=== PATIENT | female | born 1970 | race Caucasian/White ===

== ENCOUNTER → 2020-09-06 11:03 | Outpatient (BNVA) | payer OTHER, SELFPAY | PROVIDERS: PCP Internal Medicine Geriatric Medicine; Referring Provider Internal Medicine Geriatric Medicine; Visit Provider Orthopaedic Surgery | DX: M23.91 Unspecified internal derangement of right knee (principal) | CPT/HCPCS: 20610; J1100 ==

== ENCOUNTER 2022-04-11 18:53 | Emergency (ER) | payer OTHER, SELFPAY ==
--- NOTE | 2022-04-11 19:42 | ED.SKABFB ---
HPI - Skin/Abscess/Foreign Bdy General Chief complaint: Allergic Reaction Stated complaint: ? Monkey Pox Time Seen by Provider: 04/11/22 19:13 Source: patient Mode of arrival: ambulatory Limitations: no limitations History of Present Illness HPI narrative: 51-year-old female with a history of seasonal allergies presents to the emergency department with reports of itching rash noted today. Patient denies any fevers, chills, flu-like symptoms. Patient reports no shortness of breath, difficulty swallowing, cough, abdominal pain, vomiting or diarrhea. Patient did not take any medications prior to arrival. No recent travel or sick contact. No new medications, lotions, detergents, food. Does work at [employer] Related Data Previous Rx's Medication Instructions Recorded ibuprofen 600 mg tablet 600 mg PO Q8H PRN for pain #90 tabs 11/01/20 diphenhydramine HCl 25 mg capsule 25 mg PO TID PRN itching #20 caps 04/11/22 (Benadryl) prednisone 20 mg tablet 40 mg PO DAILY #10 tabs 04/11/22 Allergies Allergy/AdvReac Type Severity Reaction Status Date / Time No Known Allergies Allergy Verified 09/06/20 12:05 [No Known Allergies*] Review of Systems Review of Systems: Yes all other systems are reviewed and are negative Constitutional: Constitutional: Reports no additional constitutional complaints, Denies body ache(s), Denies chills, Denies fever(s), Denies headache(s) and Denies weakness Eyes: Eyes: Reports no additional eye complaints and Denies change in vision ENT: Reports system reviewed and no additional complaints, except as documented, Denies dizziness, Denies headache(s), Denies nasal congestion, Denies nasal discharge and Denies neck pain Cardiovascular: Cardiovascular: Reports no additional cardiovascular complaints, Denies chest pain, Denies leg edema and Denies dyspnea Respiratory: Respiratory: Reports no additional respiratory complaints, Denies cough and Denies dyspnea Gastrointestinal: Gastrointestinal: Reports no additional gastrointestinal complaints, Denies abdominal pain, Denies diarrhea, Denies nausea and Denies vomiting Genitourinary: Genitourinary: Reports no additional female genitourinary complaints and Denies urinary incontinence Musculoskeletal: Musculoskeletal: Reports no additional musculoskeletal complaints, Denies back pain, Denies arthralgias, Denies joint swelling, Denies neck pain, Denies numbness and Denies tingling Integumentary/Breasts: Skin/Breast: Reports system reviewed and no additional complaints, except as docu and Reports rash Neurologic: Reports system reviewed and no additional complaints, except as documented, Denies Abnormal speech present, Denies dizziness, Denies headache(s), Denies numbness, Denies tingling and Denies weakness PMFSH Past Medical History Attestation statement: The following information was validated with the patient. Source: old records reviewed and nursing notes reviewed Medical History Asthma Diverticulitis Internal derangement of right knee Migraine Osteoarthritis of knees, bilateral Patellofemoral pain syndrome of left knee Surgical History History of arthroscopy of left knee Family History Family History Mother No problems noted. Father No problems noted. 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 Physical Exam Vital Signs: Vital Signs: Last Vital Signs Temp 97.7 F 04/11/22 19:47 Pulse 83 04/11/22 19:47 Resp 18 04/11/22 19:47 BP 114/82 04/11/22 19:47 Pulse Ox 97 04/11/22 19:47 BMI result Body Mass Index 35.1 Const: General: cooperative, healthy appearing, comfortable and no acute distress Orientation/consciousness: patient oriented x3 Limitations: no limitations HEENT: Head: Yes normal to inspection Ears: hearing grossly normal bilaterally and TM's normal bilaterally General nose exam: Normal external nose present Face and sinus: Yes normal facial exam Mouth: Normal oral and palatal mucosa present Throat: Yes posterior oropharynx normal, Yes tonsils normal and Yes uvula midline Eyes: General: appearance normal, both eyes and all related structures Pupils: Equal, round and reactive pupils present Neck: Neck: Yes normal visual inspection, Yes full ROM, Yes no lymphadenopathy and Yes no meningeal signs Chest: Chest palpation & inspection: normal inspection of the chest Resp: Effort & Inspection: normal respiratory effort Auscultation: clear to auscultation bilaterally Cardio: Rate: regular rate Rhythm: regular rhythm Peripheral pulses: Peripheral pulses 2+ throughout GI: Inspection: Yes normal to inspection Palpation (GI): Soft to palpation and nontender Auscultation: normal bowel sounds Back/Spine/Pelvis: Thoracic/Lumbar Spine: thoracic and lumbar spine normal to inspection Skin: Other: General skin exam: no rashes or lesions noted Neuro: General: patient oriented x3, no meningeal signs, no focal motor deficits and normal sensation to monofilament Cranial nerves: Yes Equal, round and reactive pupils present Cognition (Neuro): normal cognition Speech: No Abnormal speech present Gait exam (Neuro): Normal gait present Motor exam (neuro): 5/5 motor strength present throughout Extrem: General: Yes normal to inspection, Yes no pedal edema and Yes no calf tenderness MDM - Skin/Abscess/Foreign Bdy MDM Narrative Medical decision making narrative: 51-year-old female presents with itching rash noted to the left arm, neck and trunk today. No fever or flu-like symptoms. No airway involvement. Will give PO pred, benadryl -considered dermatitis, allergic reaction, insect bites -Low concern for monkey pox with atypical rash for pox (see photos), no prodromal flu like symptoms, no fever or lymphadenopathy, no recent travel or reports of exposure. -Case d/w with Dr Sepulveda Medical Records Attestation: I reviewed the patient's medical records. Lab Data Attestation: I reviewed the patient's lab results. Discharge Plan Discharge Clinical Impression: Allergic reaction Patient Disposition: Home, Self-Care Instructions: General Allergic Reaction (ED) Additional Instructions: Continue your home medications Return for swollen lymph nodes, fever, rash in the groin or mouth Prescriptions: New prednisone 20 mg tablet 40 mg PO DAILY Qty: 10 0RF diphenhydramine HCl [Benadryl] 25 mg capsule 25 mg PO TID PRN (Reason: itching) Qty: 20 0RF No Action ibuprofen 600 mg tablet 600 mg PO Q8H PRN (Reason: for pain) Qty: 90 0RF Referrals: Stanley Diaz MD [Primary Care Provider] - Interventions: ED Discharge Assessment Last Done: 04/11/22 21:11 Discharge Date/Time: 04/11/22 21:11
[2022-04-11 19:47] VITALS: BP 114/82; PULSE 83; RESP 18; TEMP 36.5; O2SAT 97; BMI 35.1
--- NOTE | 2022-04-11 20:00 | PC.NURSE ---
pt a&ox3, vss, pt reporting new abd rash - appeared this morning. medicated per provider order. no new orders at this time.
[2022-04-11] MEDS: predniSONE 20 MG TABLET 60 MG PO (20:01)
[2022-04-11] MEDS: diphenhydrAMINE HCL 25 MG TABLET 50 MG PO (20:02)
== END 2022-04-11 21:11 | disposition home or self-care (01) ==
PROVIDERS: Emergency Provider Emergency Medicine; PCP Internal Medicine Geriatric Medicine
DX: L50.0 Allergic urticaria (principal)
CPT/HCPCS: 99283; 99284; Q0163

== ENCOUNTER 2022-06-08 05:21 | Emergency (ER) | payer OTHER, SELFPAY ==
[2022-06-08 05:40] VITALS: BP 115/88; PULSE 96; RESP 20; TEMP 38.2; O2SAT 98; BMI 34.2
[2022-06-08 06:00] LABS: COVID-19 Test Positive (Negative); IDNOW Serial# 9DB6401D
[2022-06-08 06:04] LABS: IDNOW Serial# 16C4AD1C; Influenza A Negative (Negative); Influenza B2 Negative (Negative)
--- NOTE | 2022-06-08 08:09 | ED_ITS ---
HPI - URI/Sore Throat General Chief Complaint: Upper Respiratory Symptoms Stated Complaint: Flu like symptoms Time Seen by Provider: 06/08/22 07:56 Source: patient Mode of arrival: ambulatory Limitations: no limitations History of Present Illness HPI Narrative: 51-year-old female who presents emergency department for evaluation of cold-like symptoms x2 days. Patient states she got sick yesterday. She developed a sore throat, headache and nonproductive cough. She states she also had a fever as high as 100.7 degrees F. She complained of fatigue, myalgias and arthralgias. She denied diarrhea. The patient received 3 Moderna COVID-19 vaccinations. She denied chest pain, shortness of breath or dyspnea on exertion. MD elicited complaint: fever and cough Onset (ago): day(s) (2) Consistency: constant Severity: moderate Able to tolerate fluids by mouth: Yes Exacerbating factors: nothing Relieving factors: nothing Associated symptoms: fever, chills, myalgias, headache, rhinorrhea, sore throat and cough Treatments prior to arrival: none Related Data Previous Rx's Medication Instructions Recorded ibuprofen 600 mg tablet 600 mg PO Q8H PRN for pain #90 tabs 11/01/20 diphenhydramine HCl 25 mg capsule 25 mg PO TID PRN itching #20 caps 04/11/22 (Benadryl) prednisone 20 mg tablet 40 mg PO DAILY #10 tabs 04/11/22 nirmatrelvir 300 mg (150 mg See Rx Instructions PO .COMPLEX 06/08/22 x2)-ritonavir 100 mg tablet,dose #30 ea pack(EUA) (Paxlovid) Allergies Allergy/AdvReac Type Severity Reaction Status Date / Time No Known Allergies Allergy Verified 09/06/20 12:05 [No Known Allergies*] Review of Systems Review of Systems: Yes all other systems are reviewed and are negative [facility] Past Medical History [facility] Narrative: Social history: She denies tobacco use. She occasionally drinks alcohol. She uses marijuana edibles. Medical History Asthma Diverticulitis Internal derangement of right knee Migraine Osteoarthritis of knees, bilateral Patellofemoral pain syndrome of left knee Surgical History History of arthroscopy of left knee Family History Family History Mother No problems noted. Father No problems noted. 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 Physical Exam Vital Signs: Vital Signs: Last Vital Signs Temp 100.7 F H 06/08/22 05:40 Pulse 96 06/08/22 05:40 Resp 20 06/08/22 05:40 BP 115/88 06/08/22 05:40 Pulse Ox 98 06/08/22 05:40 O2 Del Method 06/08/22 05:40 BMI result Body Mass Index 34.2 Const: General: cooperative and no acute distress Orientation/consciousness: oriented to person and oriented to place Limitations: no limitations HEENT: Head: Yes normal to inspection, Yes normocephalic and Yes atraumatic Ears: external ears normal General nose exam: Normal external nose present Face and sinus: Yes normal facial exam Mouth: Normal oral and palatal mucosa present Throat: Yes posterior oropharynx normal Eyes: General: appearance normal, both eyes and all related structures Pupils: Equal, round and reactive pupils present Neck: Neck: Yes normal visual inspection, Yes no lymphadenopathy, Yes trachea midline and Yes supple Chest: Chest palpation & inspection: normal inspection of the chest and normal palpation of entire chest wall Resp: Effort & Inspection: normal respiratory effort and able to speak in complete sentences Auscultation: clear to auscultation bilaterally Cardio: Rate: regular rate Rhythm: regular rhythm Heart sounds: S1 normal heart sound present, S2 normal heart sound present and no murmurs GI: Inspection: Yes normal to inspection Palpation (GI): Soft to palpation, nontender and no guarding Auscultation: normal bowel sounds : General: Yes no CVA tenderness Back/Spine/Pelvis: Back: no CVA tenderness Skin: General skin exam: no rashes or lesions noted Neuro: General: oriented to person and oriented to place Cranial nerves: Yes CN's II-XII intact bilaterally and Yes Equal, round and reactive pupils present Cognition (Neuro): normal cognition Motor exam (neuro): 5/5 motor strength present throughout Extrem: General: Yes normal to inspection Psych: Appearance: grossly normal Speech and movement: Normal speech and movement present Affect: normal affect Attitude: cooperative Thought process: Normal thought process present Thought content: Normal thought content present Course Course Course Narrative: 51-year-old female who presents to emergency department for evaluation of 2 days of upper respiratory illness with symptoms including fever, chills, cough, myal gias, arthralgias and fatigue the patient did receive 2 Moderna shots and a Moderna booster shot. The patient's vital signs revealed a fever of 100.7 degrees F otherwise her exam was unremarkable. The patient's COVID-19 test is positive. I did discuss treatment with the patient and I do think that the patient would benefit from Paxlovid and she was prescribed a 5 day course. She was advised to take Tylenol and ibuprofen as well. She was given a work note for 1 week. She was given printed and verbal instructions discharged home. MDM - URI/Sore Throat Lab Data Labs: Lab Results 06/08/22 06/08/22 Range/Units 05:44 05:44 COVID-19 (JANE) Positive A (Negative) COVID-19 Clin Com See Note Influenza Type A (ELIS) Negative (Negative) Influenza Type B (ELIS) Negative (Negative) Influenza A & B Note See Note Discharge Plan Discharge Clinical Impression: COVID-19 Patient Disposition: Home, Self-Care Instructions: COVID-19 (Coronavirus Disease 2019) (ED) Additional Instructions: Your COVID-19 test was positive. You will need to isolate for 5-7 days or until you have no fever for 24 hours. The cough from COVID can sometimes last 2 weeks. I am starting you on Paxlovid which is a medications specific for the COVID virus. Take this medication twice a day for 5 days. Take ibuprofen 200 mg pills, 3 pills every 6 hours as needed for pain or fever. Take Tylenol (acetaminophen) 500 mg pills, 2 pills every 4 to 6 hours as needed for pain or fever. Follow-up with your doctor in 2 days. Please return to the emergency department if your symptoms get worse or if you develop any symptoms that are concerning to you. Please see the work note. You can get your next booster shot against COVID-19 3 months after this infection. You should talk to the pharmacist about whether you should get the 4th booster shot or skip that shot and get the 5th booster shot which has the original COVID-19 vaccine +a new vaccine against the COVID Omicron variants. Prescriptions: New Paxlovid (EUA) 300 mg (150 mg x 2)-100 mg tablets,dose pack See Rx Instructions .ROUTE .COMPLEX Qty: 30 0RF Rx Instructions: take TWO 150 mg tablets of nirmatrelvir with ONE 100 mg tablet of ritonavir twice daily for 5 days No Action ibuprofen 600 mg tablet 600 mg PO Q8H PRN (Reason: for pain) Qty: 90 0RF prednisone 20 mg tablet 40 mg PO DAILY Qty: 10 0RF diphenhydramine HCl [Benadryl] 25 mg capsule 25 mg PO TID PRN (Reason: itching) Qty: 20 0RF Stand Alone Forms: Work/School Release
== END 2022-06-08 08:25 | disposition home or self-care (01) ==
PROVIDERS: Emergency Provider Emergency Medicine Emergency Medical Services; PCP Internal Medicine Geriatric Medicine
DX: U07.1 COVID-19 (principal); M79.10 Myalgia, unspecified site; R51.9 Headache, unspecified; R50.9 Fever, unspecified; R05.9 Cough, unspecified; Z79.899 Other long term (current) drug therapy
CPT/HCPCS: 87502; 87635; 99282; 99283

== ENCOUNTER 2022-07-12 18:00 | Emergency (ER) | payer OTHER, SELFPAY ==
[2022-07-12 19:53] VITALS: BP 129/81; PULSE 88; RESP 16; TEMP 36.2; O2SAT 99; BMI 31.1
--- NOTE | 2022-07-12 21:25 | ED.SKABFB ---
HPI - Skin/Abscess/Foreign Bdy General Chief complaint: Skin/Abscess/Foreign Body Stated complaint: ? 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 No known injury or trauma. No fevers, chills, headache, neck pain, weakness, numbness, tingling, speech change in behavior change. Related Data Previous Rx's Medication Instructions Recorded ibuprofen 600 mg tablet 600 mg PO Q8H PRN for pain #90 tabs 11/01/20 diphenhydramine HCl 25 mg capsule 25 mg PO TID PRN itching #20 caps 04/11/22 (Benadryl) prednisone 20 mg tablet 40 mg PO DAILY #10 tabs 04/11/22 nirmatrelvir 300 mg (150 mg See Rx Instructions PO .COMPLEX 06/08/22 x2)-ritonavir 100 mg tablet,dose #30 ea pack(EUA) (Paxlovid) Allergies Allergy/AdvReac Type Severity Reaction Status Date / Time No Known Allergies Allergy Verified 09/06/20 12:05 [No Known Allergies*] Review of Systems Review of Systems: Yes all other systems are reviewed and are negative Constitutional: Constitutional: Reports no additional constitutional complaints, Denies body ache(s), Denies chills, Denies fever(s), Denies headache(s) and Denies weakness Eyes: Eyes: Reports no additional eye complaints and Denies change in vision ENT: Reports system reviewed and no additional complaints, except as documented, Denies dizziness, Denies headache(s), Denies nasal congestion, Denies nasal discharge and Denies neck pain Cardiovascular: Cardiovascular: Reports no additional cardiovascular complaints, Denies chest pain, Denies leg edema and Denies dyspnea Respiratory: Respiratory: Reports no additional respiratory complaints, Denies cough and Denies dyspnea Gastrointestinal: Gastrointestinal: Reports no additional gastrointestinal complaints, Denies abdominal pain, Denies diarrhea, Denies nausea and Denies vomiting Genitourinary: Genitourinary: Reports no additional female genitourinary complaints and Denies urinary incontinence Musculoskeletal: Musculoskeletal: Reports no additional musculoskeletal complaints, Denies back pain, Denies arthralgias, Denies joint swelling, Denies neck pain, Denies numbness and Denies tingling Integumentary/Breasts: Skin/Breast: Reports system reviewed and no additional complaints, except as docu and Denies rash Neurologic: Reports system reviewed and no additional complaints, except as documented, Denies Abnormal speech present, Denies dizziness, Denies headache(s), Denies numbness, Denies tingling and Denies weakness PMFSH Past Medical History Attestation statement: The following information was validated with the patient. Source: old records reviewed and nursing notes reviewed Medical History Asthma Diverticulitis Internal derangement of right knee Migraine Osteoarthritis of knees, bilateral Patellofemoral pain syndrome of left knee Surgical History History of arthroscopy of left knee Family History Family History Mother No problems noted. Father No problems noted. 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 6cm area of swelling which is minimal, soft, not fluctuant/no induration or erythema. Minimally tender Ears: hearing grossly normal bilaterally General nose exam: Normal external nose present Face and sinus: Yes normal facial exam Mouth: Normal oral and palatal mucosa present Throat: Yes posterior oropharynx normal Eyes: General: appearance normal, both eyes and all related structures Pupils: Equal, round and reactive pupils present Neck: Neck: Yes normal visual inspection Chest: Chest palpation & inspection: normal inspection of the chest Resp: Effort & Inspection: normal respiratory effort Auscultation: clear to auscultation bilaterally Cardio: Rate: regular rate Rhythm: regular rhythm Peripheral pulses: Peripheral pulses 2+ throughout GI: Inspection: Yes normal to inspection Palpation (GI): Soft to palpation and nontender Auscultation: normal bowel sounds Back/Spine/Pelvis: Thoracic/Lumbar Spine: thoracic and lumbar spine normal to inspection Skin: General skin exam: no rashes or lesions noted Neuro: General: patient oriented x3, no focal motor deficits and normal sensation to monofilament Cranial nerves: Yes Equal, round and reactive pupils present Cognition (Neuro): normal cognition Speech: No Abnormal speech present Gait exam (Neuro): Normal gait present Motor exam (neuro): 5/5 motor strength present throughout Extrem: General: Yes normal to inspection MDM - Skin/Abscess/Foreign Bdy MDM Narrative Medical decision making narrative: 51 yo female here with swelling/tenderness to posterior left head x several days. Not c/w with abscess ?lipoma. Normal exam otherwise. VSS] Can follow-up with PCP. Discussed with Dr Hammonds who saw patient as well. Medical Records Attestation: I reviewed the patient's medical records. Lab Data Attestation: I reviewed the patient's lab results. Discharge Plan Discharge Clinical Impression: [place] Patient Disposition: Home, Self-Care Instructions: [place] (ED) Additional Instructions: Motrin o tylenol para el dolor seg?n sea necesario. Compresas calientes si es necesario. Seguimiento con el m?dico de atenci?n primaria seg?n sea necesario. Prescriptions: No Action ibuprofen 600 mg tablet 600 mg PO Q8H PRN (Reason: for pain) Qty: 90 0RF prednisone 20 mg tablet 40 mg PO DAILY Qty: 10 0RF diphenhydramine HCl [Benadryl] 25 mg capsule 25 mg PO TID PRN (Reason: itching) Qty: 20 0RF Paxlovid (EUA) 300 mg (150 mg x 2)-100 mg tablets,dose pack See Rx Instructions .ROUTE .COMPLEX Qty: 30 0RF Rx Instructions: take TWO 150 mg tablets of nirmatrelvir with ONE 100 mg tablet of ritonavir twice daily for 5 days Referrals: Name,MD Stanley [Primary Care Provider] - 5 days Interventions: ED Discharge Assessment Last Done: 07/12/22 21:32 Discharge Date/Time: 07/12/22 21:33 Print Language: Green[place]ic
== END 2022-07-12 21:33 | disposition home or self-care (01) ==
PROVIDERS: Emergency Provider Emergency Medicine; PCP Internal Medicine Geriatric Medicine
DX: D17.22 Benign lipomatous neoplasm of skin and subcutaneous tissue of left arm (principal)
CPT/HCPCS: 99282

== ENCOUNTER 2023-10-22 14:00 | Outpatient (REF) | payer OTHER, SELFPAY | END 2023-10-22 14:01 | disposition home or self-care (01) | LOC: HO.HHCLNP 14:00 | PROVIDERS: Visit Provider Internal Medicine Geriatric Medicine | DX: R12 Heartburn (principal); K21.9 Gastro-esophageal reflux disease without esophagitis | CPT/HCPCS: 87338 ==

== ENCOUNTER 2024-03-10 09:02 | Outpatient (REF) | payer OTHER, SELFPAY ==
[2024-03-10 11:45] LABS: MANUAL DIFF FLAG NO
[2024-03-10 11:48] LABS: Basophils Percent Auto 0.6 % (0-2); Eosinophils Absolute Auto 0.1 X10*3/uL (0.0-0.4); Eosinophils Percent Auto 2.9 % (0-4); Hematocrit 42.6 % (37.0-47.0); Imm Gran Abs Auto 0.01 X10*3/uL (0.00-0.03); Imm Gran Pct Auto 0.2 % (0.0-0.4); Lymphocytes Absolute Auto 1.7 X10*3/uL (1.2-4.9); Lymphocytes Percent Auto 34.7 % (20-40); Mean Corpuscular HGB Conc 32.9 g/dl (31.0-35.0); Mean Corpuscular Hemoglobin 29.7 pg (27.0-33.0); Mean Corpuscular Volume 90.3 fL (80.0-98.0); Mean Platelet Volume 10.8 fL (9.4-12.3); Monocytes Absolute Auto 0.4 X10*3/uL (0.1-1.2); Monocytes Percent Auto 7.3 % (2-11); Neutrophils Absolute Auto 2.6 x10*3/uL (2.0-8.3); Neutrophils Percent Auto 54.3 % (45-73); Platelet Count 239 X10*3/uL (160-400); Red Blood Count 4.72 X10*6/uL (4.20-5.50); Red Cell Distribution Width 12.6 % (11.0-16.0); White Blood Count 4.8 X10*3/uL (4.8-10.8)
[2024-03-10 11:56] LABS: Estimated Average Glucose 114 mg/dL; Hemoglobin A1c % 5.6 % (<6.0)
[2024-03-10 12:24] LABS: Alanine Aminotransferase 17 U/L (0-31); Albumin Level 4.1 g/dL (3.5-5.0); Alkaline Phosphatase 57 U/L (39-117); Anion Gap 14 (12-20); Aspartate Amino Transferase 20 U/L (5-31); Bilirubin Total 0.5 mg/dL (0.0-1.0); Blood Urea Nitrogen 11 mg/dL (9-16); Calcium 9.6 mg/dL (8.4-10.2); Carbon Dioxide 24 mmol/L (22-29); Chloride 108 mmol/L (96-108); Cholesterol 183 mg/dL (<200); Estimated Glomerular Filt Rate > 60; Glucose Random 101 mg/dL (60-115); HDL Cholesterol 37 mg/dL (>40); LDL Cholesterol Calculated 128 mg/dL (<100); Potassium 4.3 mmol/L (3.3-5.1); Sodium 142 mmol/L (135-145); Total Protein 7.1 g/dL (6.5-8.0); Triglycerides 90 mg/dL (<150)
== END 2024-03-10 09:03 | disposition home or self-care (01) ==
LOC: HO.HHCL 09:02
PROVIDERS: Visit Provider Internal Medicine Geriatric Medicine
DX: Z00.00 Encounter for general adult medical examination without abnormal findings (principal); Z13.1 Encounter for screening for diabetes mellitus; Z13.220 Encounter for screening for lipoid disorders
CPT/HCPCS: 36415; 80053; 80061; 83036; 85025

== ENCOUNTER 2025-05-04 09:55 | Emergency (ER) | payer OTHER, SELFPAY ==
[2025-05-04 10:26] VITALS: BP 123/68; PULSE 72; RESP 16; TEMP 36.7; O2SAT 97; BMI 34.9
--- NOTE | 2025-05-04 10:28 | ED_ITS ---
HPI - Nausea/Vomiting/Diarrhea General Chief complaint: Nausea/Vomiting/Diarrhea Stated complaint: Diarrhea, possible food poisoning Time Seen by Provider: 05/04/25 11:05 Source: patient and safety director Mode of arrival: ambulatory Limitations: language barrier (Monegasque-speaking) History of Present Illness ED Provider: Abdon White PA-C HPI Narrative: 54-year-old female with medical history of patellofemoral pain syndrome, diverticulitis, migraine, asthma presents to the ED due to 2 days of nausea without vomiting and diarrhea. Patient states she just returned from a 7 day cruise from the [facility] last night. Patient states Sunday night she went to dinner at a restaurant on the cruise where she and her ate salmon ceviche and began experiencing symptoms approximately 5 hours after ingesting. Her is experiencing the same symptoms as well. She was seen by a provider on the cruise ship who gave her ?an injection for diarrhea and nausea? but is unable to disclose what exactly she was given. Patient reports 3 episodes of clear watery diarrhea yesterday, and 5 episodes of clear watery diarrhea today with abdominal cramping, and chills. Patient denies any blood or mucus in the diarrhea. Patient denies any excursions or exposure to fresh water lakes or [place] while on vacation. Patient denies chest pain, shortness of breath, vomiting, black/tarry stool, urinary symptoms. Related Data Previous Rx's ?Medication ?Instructions ?Recorded ibuprofen 600 mg tablet 600 mg PO Q8H PRN for pain # 90 tabs 11/01/20 diphenhydramine HCl 25 mg capsule 25 mg PO TID PRN itc jose #20 caps 04/11/22 (Benadryl) prednisone 20 mg tablet 40 mg (2 x 20 mg) PO DAILY # 10 tabs 04/11/22 nirmatrelvir 300 mg (150 mg See Rx Instructions PO .CO MPLEX 06/08/22 x2)-ritonavir 100 mg tablet,dose #30 ea pack (Paxlovid) dicyclomine 10 mg capsule 10 mg PO BID 3 days #6 caps 05/04/25 ondansetron HCl 4 mg tablet 4 mg PO Q8H 3 days #9 tabs 05/04/25 Allergies Allergy/AdvReac Type Severity Reaction Status Date / Time No Known Allergies (No Known Allergy Verified 05/04/25 10:30 Allergies*) Review of Systems 2 Review of Systems: CONST: Negative for fever, body aches and chills. HENT: Negative for neck pain/stiffness, headache, congestion, sore throat, swelling. EYES: Negative for discharge/pain or vision changes. RESP: Negative for cough/hemoptysis and shortness of breath. CV: Negative chest pain, difficulty breathing, palpitations. ABD: Negative pain, nausea, vomiting. POS diarrhea, abd bloating, cramping : Negative increase frequency, dysuria, blood in urine or stool. MUSC: Negative for muscle aches, edema. SKIN: Negative rash, lesions/sores. NEURO: Negative headache, dizziness, weakness. [facility] Past Medical History Attestation statement: The following information was validated with the patient. Source: old records reviewed and nursing notes reviewed Medical History Internal derangement of right knee Patellofemoral pain syndrome of left knee Diverticulitis Migraine Osteoarthritis of knees, bilateral Asthma Surgical History History of arthroscopy of left knee Family History Family History Mother No problems noted. Father No problems noted. 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 HEENT: ?NC, AT. MMM. EOMI, clear conjunctiva, oropharynx clear. NECK: ?Supple without lymphadenopathy.? No stiffness or restricted ROM. HEART:? Normal rate and regular rhythm, normal S1/S2, no m/r/g LUNGS:? CTAB, moving air well. No crackles or wheezes are heard. ABDOMEN: ?Soft, nondistended, no rigidity, diffusely tender, Pickens's sign negative, no rebound tenderness, normal bowel sounds in all 4 quadrants. BACK: No CVAT, no obvious deformity. EXTREMITIES: ?Without cyanosis, clubbing or edema. NEUROLOGICAL: ?Grossly nonfocal. Alert and oriented, moving all 4 extremities. Observed to ambulate with normal gait. Skin: ?Warm and dry without any rash. Course Course Course Narrative: 54 yo female with no sig PMH just went on a cruise to the [facility] - came back yesterday but on Sunday they ate cevich. She was given immodium by cruise ship director. Her also has the same illness and he is waiting to be seen as ER patient. She reports abdominal cramps, non bloody stools, chills, she still has N/V. No recent abx use. At this time labs, stool studies. this is a RAPID medical screening exam the rest of the history and physical exam is to be done by the main provider. KATHRYN 05/04/25 1030am Medications Administered Generic Name Dose Route Start Last Admin Trade Name Freq PRN Reason Stop Dose Admin Lactated Ringer's 1,000 mls @ 999 mls/hr 05/04/25 12:15 05/04/25 12:08 Lr IV 05/04/25 13:15 999 mls/hr .[id number] CORRY Administration Discontinued Medications Generic Name Dose Route Start Last Admin Trade Name Freq PRN Reason Stop Dose Admin Azithromycin 1,000 mg 05/04/25 12:05/04/25 12:40 Azithromycin 500 Mg Tablet PO 05/04/25 12:26 1,000 mg ONCE ONE Administration Dicyclomine HCl 10 mg 05/04/25 12:25 05/04/25 12:40 Dicyclomine Hcl 10 Mg Capsule PO 05/04/25 12:26 10 mg ONCE ONE Administration Medical Decision Making Medical Decision Making MDM Narrative: 54-year-old female with medical history of patellofemoral pain syndrome, diverticulitis, migraine, asthma presents to the ED due to 2 days of nausea without vomiting and diarrhea. Patient states she just returned from a 7 day cruise from the [facility] last night. Patient states Sunday night she went to dinner at a restaurant on the cruise where she and her ate salmon ceviche and began experiencing symptoms approximately 5 hours after ingesting. Her is experiencing the same symptoms as well. She was seen by a provider on the cruise ship who gave her ?an injection for diarrhea and nausea? but is unable to disclose what exactly she was given. Patient reports 3 episodes of clear watery diarrhea yesterday, and 5 episodes of clear watery diarrhea today with abdominal cramping, and chills. Patient denies any blood or mucus in the diarrhea. Patient denies any excursions or exposure to fresh water lakes or [place] while on vacation. VSS, nontoxic appearing, in no acute distress, BP 123/68, pulse rate 72 beats per minute, afebrile with an oral temp of 98.1?, O2 saturation 97% on room air. On physical exam abdomen is soft, nondistended, without rigidity, Pickens's sign negative, no rebound tenderness, normal bowel sounds in all 4 quadrants, abdomen diffusely tender, no suprapubic tenderness- less likely acute abdomen Labs negative for leukocytosis, unremarkable. UA with 2+ leukocyte esterase, 11-20 urine WBCs, 2+ urine bacteria, 6-10 squamous epithelial cells. Patient without suprapubic tenderness, no dysuria, no urinary frequency. I do not believe patient needs to be treated with antibiotics for UTI at this time. Will wait for culture and treat if indicated. At this time I believe patient symptoms are due to traveler's diarrhea, her and her ate the same food, both with same symptoms. Patient without vomiting, no blood in stool. We will treat with IV fluids, dose of 10 mg Bentyl for gas and bloating, and 1 g p.o. azithromycin to cover for traveler's diarrhea. Awaiting stool culture results, we will call patient with results and change treatment as indicated. I will discharged with Bentyl, and Zofran for nausea. Differential Diagnosis Differential Diagnoses: The differential diagnosis associated with the presentation includes Traveler's diarrhea Acute abdomen UTI Electrolyte abnormality Dehydration Admission/Observation Consideration of admission/observation: Escalation of care including admission/observation considered Considered admission, patient vital signs stable, afebrile, we will send home for self-care, and call with results of stool culture. Lab Data MDM Lab Attestation statement: I reviewed the patient's lab results. 05/04/25 10:37 05/04/25 10:37 Labs: Lab Results 05/04/25 05/04/25 Range/Units 10:37 11:54 WBC 4.9 (4.8-10.8) X10*3/uL RBC 4.56 (4.20-5.50) X10*6/uL Hgb 13.9 (12.0-16.0) g/dl Hct 41.0 (37.0-47.0) % MCV 89.9 (80.0-98.0) fL MCH 30.5 (27.0-33.0) pg MCHC 33.9 (31.0-35.0) g/dl RDW 13.2 (11.0-16.0) % Plt Count 185 (160-400) X10*3/uL MPV 10.2 (9.4-12.3) fL Immature Gran % (Auto) 0.2 (0.0-0.4) % Neut % (Auto) 65.8 (45-73) % Lymph % (Auto) 23.6 (20-40) % [place] % (Auto) 9.4 (2-11) % Eos % (Auto) 0.6 (0-4) % Baso % (Auto) 0.4 (0-2) % Lymph # (Auto) 1.2 (1.2-4.9) X10*3/uL [place] # (Auto) 0.5 (0.1-1.2) X10*3/uL Eos # (Auto) 0.0 (0.0-0.4) X10*3/uL Baso # (Auto) 0.0 (0.0-0.2) X10*3/uL Abs Immat Gran (auto) 0.01 (0.00-0.03) X10*3/uL Absolute Neuts (auto) 3.2 (2.0-8.3) x10*3/uL Absolute Nucleated RBC 0.000 (0.0-0.012) X10*3/uL Nucleated RBC % (auto) 0.0 (0.0-0.2) /100WBC Sodium 140 (135-145) mmol/L Potassium 3.5 (3.3-5.1) mmol/L Chloride 108 (96-108) mmol/L Carbon Dioxide 24 (22-29) mmol/L Anion Gap 12 (12-20) BUN 13 (9-16) mg/dL Creatinine 0.67 (0.5-1.4) mg/dL Estim Creat Clear Calc 98.0 Estimated GFR > 60 Random Glucose 107 (60-115) mg/dL Calcium 8.4 D (8.4-10.2) mg/dL Magnesium 1.9 (1.6-2.6) mg/dL Total Bilirubin 0.5 (0.0-1.0) mg/dL Direct Bilirubin 0.2 (0.0-0.5) mg/dL AST 38 H (5-31) U/L ALT 76 H (0-31) U/L Alkaline Phosphatase 69 (39-117) U/L Total Protein 6.8 (6.5-8.0) g/dL Albumin 4.2 (3.5-5.0) g/dL Lipase 24 (8-78) U/L Urine Color Yellow Urine Appearance Clear Urine pH 6.0 (5.0-9.0) Ur Specific [place] 1.020 (1.005-1.025) Urine Protein Trace (Neg-Trace) mg/dL Urine Glucose (UA) Negative (Negative) mg/dL Urine Ketones Negative (Negative) mg/dL Urine Blood Negative (Negative) Urine Nitrite Negative (Negative) Ur Leukocyte Esterase Moderate (2+) H (Negative) Urine RBC 0-2 (0-2) /HPF Urine WBC 11-20 H (0-5) /HPF Ur Squamous Epith Cells 6-10 (0-2) /HPF Urine Bacteria 2+ (None Seen) Hyaline Casts 0-2 (0-2) /LPF External Record Review External record reviewed: Inpatient record, Office record and Outpatient record Chronic Conditions Patient?s care impacted by: Other (Asthma) Discharge Plan Discharge Clinical Impression: Traveler's diarrhea Patient Disposition: Home, Self-Care Instructions: Traveler's Diarrhea (ED), Acute Diarrhea (ED) Additional Instructions: You were evaluated in the ED today due to 2 days of diarrhea. Your lab work did not show indication of infection at this time, your urine had some bacteria in it, however you were not experiencing urinary symptoms at this time. I do not believe that you need treatment. We will call you with your culture results and start you on treatment if indicated. We are awaiting your stool sample results, we will call you with those results and treat you as indicated. While in the department you were given IV fluids, 1 g of azithromycin to cover for traveler's diarrhea, and 10 mg of Bentyl to help with abdominal bloating and gas. Continue to drink plenty of fluids, Pedialyte, sports drinks to replete electrolytes as needed. I recommend you eat a bland diet and advance as tolerated. Please follow up with your primary care doctor to ensure improvement. Please return to the emergency department if you experience fevers over 100.4?, chest pain, shortness of breath, worsening abdominal pain, worsening diarrhea, blood in the diarrhea, or any other new/concerning/worsening symptoms. Prescriptions: New dicyclomine 10 mg capsule 10 mg PO BID 3 Days Qty: 6 0RF ondansetron HCl 4 mg tablet 4 mg PO Q8H 3 Days Qty: 9 0RF No Action ibuprofen 600 mg tablet 600 mg PO Q8H PRN (Reason: for pain) Qty: 90 0RF prednisone 20 mg tablet 40 mg PO DAILY Qty: 10 0RF diphenhydramine HCl [Benadryl] 25 mg capsule 25 mg PO TID PRN (Reason: itching) Qty: 20 0RF Paxlovid 300 mg (150 mg x 2)-100 mg tablets,dose pack See Rx Instructions .ROUTE .COMPLEX Qty: 30 0RF Rx Instructions: take TWO 150 mg tablets of nirmatrelvir with ONE 100 mg tablet of ritonavir twice daily for 5 days Print Language: Monegasque
[2025-05-04 10:41] LABS: MANUAL DIFF FLAG NO
[2025-05-04 10:42] LABS: Hematocrit 41.0 % (37.0-47.0); Hemoglobin 13.9 g/dl (12.0-16.0); Imm Gran Abs Auto 0.01 X10*3/uL (0.00-0.03); Imm Gran Pct Auto 0.2 % (0.0-0.4); Lymphocytes Absolute Auto 1.2 X10*3/uL (1.2-4.9); Mean Corpuscular HGB Conc 33.9 g/dl (31.0-35.0); Mean Corpuscular Hemoglobin 30.5 pg (27.0-33.0); Mean Corpuscular Volume 89.9 fL (80.0-98.0); NRBC Abs Auto 0.000 X10*3/uL (0.0-0.012); NRBC Pct Auto 0.0 /100WBC (0.0-0.2); Platelet Count 185 X10*3/uL (160-400); Red Blood Count 4.56 X10*6/uL (4.20-5.50); White Blood Count 4.9 X10*3/uL (4.8-10.8)
[2025-05-04 11:00] LABS: Alanine Aminotransferase 76 U/L (0-31); Albumin Level 4.2 g/dL (3.5-5.0); Alkaline Phosphatase 69 U/L (39-117); Anion Gap 12 (12-20); Aspartate Amino Transferase 38 U/L (5-31); Blood Urea Nitrogen 13 mg/dL (9-16); Calcium 8.4 mg/dL (8.4-10.2); Carbon Dioxide 24 mmol/L (22-29); Chloride 108 mmol/L (96-108); Creatinine Clr Calc Pharmacy 98.0; Estimated Glomerular Filt Rate > 60; Lipase 24 U/L (8-78); Magnesium 1.9 mg/dL (1.6-2.6); Potassium 3.5 mmol/L (3.3-5.1); Sodium 140 mmol/L (135-145); Total Protein 6.8 g/dL (6.5-8.0)
[2025-05-04 11:24] VITALS: BP 98/75; PULSE 66; RESP 18; TEMP 36.5; O2SAT 98
[2025-05-04 12:05] LABS: Appearance Urine Clear; Glucose Urine UA Negative (Negative); PH 6.0 (5.0-9.0); Specific Gravity - Urine 1.020 (1.005-1.025); UMIC TRIGGER UACC YES
[2025-05-04] MEDS: Lactated Ringers 1,000 ML 999 ML IV (12:08)
--- OUTSIDE RECORDS SUMMARY | 2025-05-04 12:10 | XMS_ITS | Encounter Summary ---
Author Organization [employer] Address [address] [place] [address] [address] [place] [address] Care Team Providers Care Amusement Ride Inspector Name Role Phone Name, Stanley FIGUEROA Primary Care Provider Encounter Details Date Type Department Care Team ([facility] st Contact Info) Description 02/16/2023 Abstract [facility] MEDICINE [address] [place], [place] [id number] Name, MD Stanley [address] [place] [address] Social History Tobacco Use Types Packs/Day Years Used Date Smoking Tobacco: Never Assessed Depression Answer Date Recorded Patient Health Questionnaire-9 Score 0 02/20/2023 Depression Answer Date Recorded Patient Health Questionnaire-2 Score 0 02/20/2023 Comments Unknown Sex and Gender Information Value Date Recorded Sex Assigned at Female 07/31/2022 10:26 AM EDT Legal Sex Female 10:26 AM EDT Gender Identity Female 07/31/2022 10:26 AM EDT Sexual Orientation Straight 07/31/2022 10 :26 AM EDT documented as of this encounter Plan of Treatment Not on file documented as of this encounter Procedures Procedure Name Priority Date/Time Associated Diagnosis Comments COLONOSCOPY Routine 12/09/2022 11:46 AM EST MAMMOGRAPHY Routine 06/26/2022 11:49 AM EDT PAP/HPV Routine 05/30/2021 12:00 AM EDT documented in this encounter Results * Colonoscopy (12/09/2022 11:46 AM EST) [facility] Colonoscopy Normal Normal Narrative oRsalba Talbert - 12/09/2022 11:46 AM EST Recommended 10 year follow up us Historical Provider HEALTH MAINTENANCE Final Result * Mammography (06/26/2022 11:49 AM EDT) [facility] Mammogram Birads-2 Anatomical Region Laterality Modality Other Historical Provider HEALTH MAINTENANCE Final Result * Hm Pap Smear (05/30/2021 12:00 AM EDT) Historical Provider HEALTH MAINTENANCE Final Result documented in this encounter Visit Diagnoses Not on filedocumented in this encounter Care Teams Amusement Ride Inspector Relationship Specialty Start Date End Date Name, MD Stanley [address] [place] [id number] PCP - General Family Medicine 01/10/16 documented as of this encounter
--- OUTSIDE RECORDS SUMMARY | 2025-05-04 12:10 | XMS_ITS | Clinical Summary ---
Author Organization [address] [place] [address] Address [address] [place] [address] Phone Care Team Providers Care Manager Business Planning Name Role Phone Name, Stanley FIGUEROA Primary Care Provider [phone] Surgical History Surgery Date Site/Laterality Comments SECTION PROCEDURE: DE DELIVERY ONLY; COMMENT: times 2 TUBAL LIGATION 2009 PROCEDURE: HISTORICAL TUBAL LIGATION BREAST BIOPSY 03/04/2018 Right PROCEDURE: BX BREAST; PERC NEEDLE CORE W/IMAG GUID; COMMENT: apocrine metaplasia Medical History Medical History Date Comments CTS (carpal tunnel syndrome) 02/14/2013 DX: CTS (carpal tunnel syndrome); COMMENT: Had EMG 12/2010 Family History Medical History Relation Name Comments Arthritis Mother Hypertension Mother Uterine cancer Other mother's cousin 54 Breast cancer Neg Hx Colon cancer Neg Hx Ovarian cancer Neg Hx Pancreatic cancer Neg Hx Prostate cancer Neg Hx Relation Name Status Comments Brother Alive asthma Daughter Alive Father Alive Mother Alive HTN Other mother's cousin 54 Alive Sister Alive asthma Son Alive Social History Tobacco Use Types Packs/Day Years Used Date Smoking Tobacco: Never Smokeless Tobacco: Never Alcohol Use Standard Drinks/Week Comments Yes 0 (1 standard drink = 0.6 oz pur e alcohol) Comments Unknown Sex and Gender Information Value Date Recorded Sex Assigned at Not on file Legal Sex Female 8:26 AM EST Gender Identity Not on file Sexual Orientation Not on file Obstetrics History Last Filed Vital Signs Vital Sign Reading Time Taken Comments Blood Pressure 108/60 10/22/2023 2:24 PM EST Pulse 78 10/22/2023 2:24 PM EST Temperature - - Respiratory Rate - - Oxygen Saturation - - Inhaled Oxygen Concentration - - Weight 86.4 kg (190 lb 6.4 oz) 10/22/2023 2:24 P M EST Height 157.5 cm (5' 2 ) 10/22/2023 2:24 PM EST Body Mass Index 34.82 10/22/2023 2:24 PM EST Plan of Treatment Upcoming Encounters Date Type Department Care Team (Late st Contact Info) Description 05/26/2025 1:15 PM EDT Office Visit Orthopedic Surgery [place] [address] [phone] Tree Jerome, DPM [address] [address] 07/27/2025 1:30 PM EDT Appointment Radiology Department [address] [phone] Health Maintenance Due Date Last Done Comments Hepatitis B Vaccines (1 of 3 - 19+ 3-dose series) 1989 Cervical Cancer Screening: HPV 1991 Pneumococcal Vaccine: 50+ Years (1 of 1 - PCV) 2020 Zoster Vaccines (1 of 2) 2020 Colorectal Cancer Screening: Colonoscopy 09/09/2022 HIV Screening 09/09/2022 Hepatitis C Screening 09/09/2022 Social Influencers of Health Screening 09/09/2022 DTaP,Tdap,and Td Vaccines (2 - Td or Tdap) 11/15/2022 11/15/2012 COVID-19 Vaccine ( - season) 2024 Depression Screening 10/01/2024 Influenza Vaccine (#1) 2025 Breast Cancer Screening 07/07/2026 07/07/20 24, 07/07/2024, 07/02/2023, Additional history exists HIB Vaccines Aged Out No longer eligi ble based on patient's age to complete this topic HPV Vaccines Aged Out No longer eligi ble based on patient's age to complete this topic Hepatitis A Vaccines Aged Out No long er eligible based on patient's age to complete this topic IPV Vaccines Aged Out No longer eligi ble based on patient's age to complete this topic MMR Vaccines Aged Out No longer eligi ble based on patient's age to complete this topic Meningococcal ACWY Vaccine Aged Out N o longer eligible based on patient's age to complete this topic Meningococcal B Vaccine Aged Out No l onger eligible based on patient's age to complete this topic RSV Immunization Patients Under 20 months Aged Out No longer eligible based on patient's age to complete this topic Varicella Vaccines Aged Out No longer eligible based on patient's age to complete this topic Procedures Procedure Name Priority Date/Time Associated Diagnosis Comments SCREENING MAMMOGRAPHY BI 2-VIEW BREAST INC CAD Routine 07/07/2024 1:01 PM EDT Encounter for screening mammogram for malignant neoplasm of breast from Last 3 Months or Most Recently Relevant to Health Maintenance Results * SCREENING MAMMOGRAPHY BI 2-VIEW BREAST INC CAD (07/07/2024 1:01 PM EDT) Anatomical Region Laterality Modality Radiographic Calli ging 07/02/2023 2:33 PM EDT Narrative 07/08/2024 12:01 PM EDT This is a summary report. The complete report is available in the patient's medical record. If you cannot access the medical record, please contact the sending organization for a detailed fax or copy. Full field digital screening tomosynthesis mammography, reviewed with CAD and compared to previous. The breasts are composed of fatty and fibroglandular tissue. No suspicious mass, architectural distortion or suspicious calcifications are identified. IMPRESSION: : No mammographic evidence of malignancy. BIRADS 1-Negative; N. Breast density: The breasts have scattered areas of fibroglandular density. 5 year breast cancer risk assessment 0.8 % Lifetime breast cancer risk assessment 6.3 % Breast cancer risk category Low (<15%) Location: [facility], [address] [place] [address], [phone], [phone] Procedure Note Claudia Rivera MD - 08/25/2024 This is a summary report. The complete report is available in thepatient's medical record. If you cannot access the medical record, pleasecontact the sending organization for a detailed fax or copy. Full field digital screening tomosynthesis mammography, reviewed with CADand compared to previous. The breasts are composed of fatty andfibroglandular tissue. No suspicious mass, architectural distortion orsuspicious calcifications are identified. IMPRESSION: : No mammographic evidence of malignancy. BIRADS 1-Negative; N. Breast density: The breasts have scattered areas of fibroglandulardensity. 5 year breast cancer risk assessment 0.8 % Lifetime breast cancer risk assessment 6.3 % Breast cancer risk category Low (<15%) Location: [facility], [address] [place] [address], [phone], [phone] Stanley Name IMG XR PROCEDURES Final Result from Last 3 Months or Most Recently Relevant to Health Maintenance Insurance [employer] Care Teams Manager Business Planning Relationship Specialty Start Date End Date Name, MD Stanley [address] [place] [address] PCP - General Internal Medicine 02/03/16
[2025-05-04 12:16] LABS: UACC Culture Trigger YES
--- NOTE | 2025-05-04 12:41 | PC.NURSE ---
pt presents following diarrhea from end of cruise 2 days ago. RR even and unlabored, denies CP or SOB.
[2025-05-04 12:44] VITALS: BP 114/73; PULSE 61; RESP 16; O2SAT 100
[2025-05-04 12:53] VITALS: BP 114/73; PULSE 61; RESP 16; TEMP 36.6; O2SAT 100
[2025-05-04 13:02] LABS: CDiff Gene PCR NEGATIVE (Negative)
[2025-05-04 14:35] LABS: E. coli EAEC Not Detected (Not Detect.); E. coli EPEC Not Detected (Not Detect.); E. coli ETEC Not Detected (Not Detect.); E. coli STEC Not Detected (Not Detect.); Shigella sp./EIEC Not Detected (Not Detect.)
== END 2025-05-04 12:57 | disposition home or self-care (01) ==
PROVIDERS: Emergency Medicine; Emergency Provider Emergency Medicine Emergency Medical Services; PCP Internal Medicine Geriatric Medicine
DX: A08.11 Acute gastroenteropathy due to Norwalk agent (principal); R11.2 Nausea with vomiting, unspecified; T75.3XXA Motion sickness, initial encounter; Y93.9 Activity, unspecified; Y99.9 Unspecified external cause status; J45.909 Unspecified asthma, uncomplicated; Z03.818 Encounter for observation for suspected exposure to other biological agents ruled out; Z79.899 Other long term (current) drug therapy
CPT/HCPCS: 36415; 80048; 80076; 81001; 81003; 83690; 83735; 85025; 87086; 87493; 87507; 99283; 99284; J7120

== ENCOUNTER 2025-06-17 07:18 | Emergency (ER) | payer OTHER, SELFPAY ==
--- NOTE | ~2025-06-17 | XR_ITS ---
EXAMINATION: XR FINGERS RIGHT HISTORY: pain COMPARISON: There are no prior studies available for comparison. FINDINGS: Three views of the right thumb are submitted. Osseous mineralization is normal. There is no fracture or dislocation. The joint spaces are preserved. The soft tissues are unremarkable. XR/XR finger RT min 2V IMPRESSION: Unremarkable examination of the right thumb. Electronically signed by: Alonzo Stauffer MD 06/17/2025 07:59 AM EDT
[2025-06-17 07:19] VITALS: BP 135/77; PULSE 61; RESP 16; TEMP 36.4; O2SAT 98; BMI 23.3
--- OUTSIDE RECORDS SUMMARY | 2025-06-17 07:50 | XMS_ITS | Encounter Summary ---
Author Organization [employer] Address [address] [place] [address] [address] [place] [address] Care Team Providers Care Fabric Sourcer Name Role Phone NameStanley MD Primary Care Provider [phone] Encounter Details Date Type Department Care Team (Late st Contact Info) Description 01/30/2023 Orders Only [facility] [address] [place] [address] Jacqui Fields LPN Social History Tobacco Use Types Packs/Day Years Used Date Smoking Tobacco: Never Assessed Comments Unknown Sex and Gender Information Value Date Recorded Sex Assigned at Female 07/31/2022 10:26 AM EDT Legal Sex Female 10:26 AM EDT Gender Identity Female 07/31/2022 10:26 AM EDT Sexual Orientation Straight 07/31/2022 10 :26 AM EDT documented as of this encounter Plan of Treatment Upcoming Encounters Date Type Department Care Team (Late st Contact Info) Description 08/03/2025 3:30 PM EST Office Visit [facility] MEDICINE [address] [place] [address] NameStanley MD [address] [place] [address] documented as of this encounter Visit Diagnoses Not on filedocumented in this encounter Care Teams Fabric Sourcer Relationship Specialty Start Date End Date Stanley Diaz MD [address] [place] [address] PCP - General Family Medicine 01/10/16 documented as of this encounter
--- OUTSIDE RECORDS SUMMARY | 2025-06-17 07:50 | XMS_ITS | Clinical Summary ---
Author Organization [employer] Address [address] [facility] [address] [place] [address] Care Team Providers Care Final Inspector Balance Wheel Name Role Phone Name, Stanley FIGUEROA Primary Care Provider [phone] Allergies No known active allergies Medications albuterol 108 (90 Base) MCG/ACT inhaler Inhale 2 puffs every 6 (six) hours if needed for wheezing. 18 g 11 10/08/2023 Active omeprazole OTC (PriLOSEC OTC) 20 MG EC tablet Take 1 tablet (20 mg) by mouth before breakfast. Do not crush, chew, or split. 30 tablet 2 10/26/2023 Active Diclofenac Sodium (Voltaren) 1 % gel Use topical BID 100 g 3 06/09/2024 Active ibuprofen 600 MG tablet TAKE 1 TABLET BY MOUTH 3 TIMES DAILY. 90 tablet 07/07/2024 Active cyclobenzaprine (Flexeril) 10 MG tablet Take 1 tablet (10 mg) by mouth if needed in the morning, at noon, and at bedtime for muscle spasms. 90 tablet 08/05/2024 Active cholecalciferol (Vitamin D-3) 25 MCG (1000 UT) capsule Take 1 capsule (25 mcg) by mouth Once per day. 90 capsule 3 01/12/2025 Active loratadine (Claritin) 10 MG tablet Take 1 tablet (10 mg) by mouth Once per day. 90 tablet 3 01/12/2025 Active Active Problems Problem Noted Date Diagnosed Date Allergic disorder 02/16/2023 Gastroesophageal reflux disease without esophagi tis 02/16/2023 Perennial allergic rhinitis with seasonal variat ion 02/16/2023 Urticaria 02/16/2023 Prediabetes 07/17/2022 Vitamin D deficiency 08/20/2018 Osteoarthritis of knee 08/02/2018 Whole body pain 08/02/2018 Bleeding 06/17/2018 Knee pain 06/17/2018 DUB (dysfunctional uterine bleeding) 05/21/2017 Migraine without aura, not refractory 11/27/2016 Mild intermittent asthma 01/10/2016 Cervical radiculopathy 09/16/2014 Overview (02/16/2023): With radiation to the left arm CTS (carpal tunnel syndrome) 02/14/2013 Overview (02/16/2023): Had EMG 12/2010 Encounters Date Type Department Care Team Description 05/15/2025 Telephone [facility] [address] [place] [phone] Dolly Jose MA july recalls 05/06/2025 6:40 PM EDT Office Visit [facility] [address] [place] [phone] CastilloPavel Carlson MD Norovirus (Primary Dx) 05/06/2025 Travel 05/06/2025 Telephone [facility] [address] [place] [phone] Stanley Diaz MD Nurse Triage 05/06/2025 Telephone [facility] [address] [place] [phone] NameStanley MD requesting call back 05/04/2025 Orders Only GENERIC EXTERNAL DATA DEPARTMENT Provider, Generic External Data from Last 3 Months Immunizations Immunization Administration Dates Next Due Hep B, adult 04/14/2024,03/10/2024 Influenza injectable quadriv alent IIV4 with preservative 07/04/2018 Influenza injectable quadriv alent preservative free 10/08/2023,09/02/2021,07/03/2019 Influenza, IIV3, injectable 10/27/2010 Influenza, seasonal, injecta ble, preservative free 08/05/2024 Moderna Covid-19 Vaccine 12+ 11/26/2020,10/26/19 21 Pneumococcal Conjugate PCV 20 03/10/2024 Td (adult), unspecified 06/08/1998 Tdap 02/22/2024,11/15/2012,10/27/2010 Zoster, Recombinant 03/06/2022,11/28/2021 Social History Tobacco Use Types Packs/Day Years Used Date Smoking Tobacco: Never Passive Smoke Exposure: Never Smokeless Tobacco: Never Tobacco Cessation:Counseling Given: Not Answered Alcohol Use Standard Drinks/Week Comments Yes 0 (1 standard drink = 0.6 oz pur e alcohol) Occasionally Depression Answer Date Recorded Patient Health Questionnaire-9 Score 0 02/22/2024 Patient Health Questionnaire-9 Score 0 02/22/2024 Last PHQ-9: Questionnaire Data Not on file 0 02/22/2024 Housing Stability Answer Date Recorded What is your housing situation today? I have michael garzon 02/22/[address] you li ve. Do you have problems with any of the following? None of the above 02/22/2024 Food Insecurity Answer Date Recorded Within the past 12 months, y ou worried that your food would run out before you got money to buy more: Never True 02/22/2024 Within the past 12 months,th e food you bought just didn't last and you didn't have enough money to get more: Never True Transportation Answer Date Recorded In the past 12 months, has l ack of transportation kept you from medical appts, meetings, work or from getting things needed for daily living? No 02/22/2024 Utilities Answer Date Recorded In the past 12 months, has t he electric, gas, oil or water company threatened to shut off services in your home? No 02/22/2024 Depression Answer Date Recorded Patient Health Questionnaire-2 Score 0 02/22/2024 Comments Unknown Sex and Gender Information Value Date Recorded Sex Assigned at Female 07/31/2022 10:26 AM EDT Legal Sex Female 10:26 AM EDT Gender Identity Female 07/31/2022 10:26 AM EDT Sexual Orientation Straight 07/31/2022 10 :26 AM EDT Last Filed Vital Signs Vital Sign Reading Time Taken Comments Blood Pressure 147/91 05/06/2025 5:33 PM EDT Pulse 72 05/06/2025 5:33 PM EDT Temperature 36.6 C (97.8 F) 05/06/2025 5:33 PM EDT Respiratory Rate 16 05/06/2025 5:33 PM EDT Oxygen Saturation 98% 05/06/2025 5:33 PM EDT Inhaled Oxygen Concentration - - Weight 88.2 kg (194 lb 6.4 oz) 05/06/2025 5:33 P M EDT Height 157.5 cm (5' 2 ) 05/06/2025 5:33 PM EDT Body Mass Index 35.56 05/06/2025 5:33 PM EDT Plan of Treatment Upcoming Encounters Date Type Department Care Team (Late st Contact Info) Description 08/03/2025 3:30 PM EST Office Visit [facility] [address] [place] [address] Name, MD Stanley [address] [place] [phone] Health Maintenance Due Date Last Done Comments CT Colonography 1970 FIT DNA/Cologuard 1970 FIT 1970 FOBT 1970 Sigmoidoscopy 1970 Alcohol/Substance Use Screening 1982 Hepatitis B Vaccines (3 of 3 - 19+ 3-dose series) 09/09/2024 04/14/2024, 03/10/2024 Depression Screening 02/21/2025 02/22/2024, 02/22/20 24 SDOH Screening 02/21/2025 02/22/2024 Diabetes: Hemoglobin A1C 03/10/2025 024, 03/12/2023, 11/28/2021 COVID-19 Vaccine ( season) 2025 09/02/2021, 11/26/2020, 10/26/2020 Influenza Vaccine (#1) 2025 , 10/08/2023, 09/02/2021, Additional history exists Mammogram 07/07/2025 07/07/2024, 11/2022, 02/20/2023, Additional history exists Disability Screening 01/12/2026 01/12/2025 Tobacco Screening 01/12/2026 01/12/2025 Cervical Cancer Screening 05/30/2026 HPV/Cotest 05/30/2026 Pap Smear 05/30/2026 05/30/2021 Colonoscopy 12/09/2028 02/20/2023, 12/09/2022 Colorectal Cancer Screening 12/09/2028 DTaP/Tdap/Td Vaccines (4 - Td or Tdap) 02/21/2034 02/22/2024, 11/15/2012, 10/27/2010, Additional history exists RSV Patients and Patients Aged 60 years or older (1 - 1-dose 75+ series) 2045 HIV Screening Completed 11/28/2021 Hepatitis C Screening Completed 11/28/2021 Zoster Vaccines Completed 03/06/2022, 11/28/2021 Pneumococcal Vaccine: 50+ Years Completed 03/10/2024 HIB Vaccines Aged Out No longer eligi [...] patient's age to complete this topic Meningococcal Vaccine Aged Out No maximiliano magno eligible based on patient's age to complete this topic RSV under 20 months Aged Out No longe r eligible based on patient's age to complete this topic Rotavirus Vaccines Aged Out No longer eligible based on patient's age to complete this topic Procedures Procedure Name Priority Date/Time Associated Diagnosis Comments AMB REFERRAL TO PODIATRY Routine 05/26/2025 Bunion of great toe of right foot Foot pain, right URINALYSIS, COMPLETE, WITH REFLEX TO CULTURE Routine 05/04/2025 11:54 AM EDT URINALYSIS WITH REFLEX MICROSCOPIC Routine 05/04/2025 11:54 AM EDT CDIFF GENE PCR Routine 05/04/2025 11:53 AM EDT GASTROINTESTINAL PANEL Routine 11:53 AM EDT LIPASE Routine 05/04/2025 10:37 AM EDT MAGNESIUM Routine 05/04/2025 10:37 AM EDT BASIC METABOLIC PANEL Routine 05/04/2025 10:37 AM EDT HEPATIC FUNCTION PANEL Routine 10:37 AM EDT CBC WITH AUTO DIFFERENTIAL Routine 05/04/2025 10:37 AM EDT CULTURE, URINE, ROUTINE Routine 05/04/20 12:00 AM EDT MAMMOGRAPHY Routine 07/07/2024 HEMOGLOBIN A1C Routine 03/10/2024 9:03 AM EDT PE (physical exam), annual Screening for diabetes mellitus Screening for cholesterol level COLONOSCOPY Routine 02/20/2023 10:42 AM EDT ZZZ HISTORICAL HEPATITIS C AB W/REFL TO HCV RNA, QN, PCR Routine 11/28/2021 8:58 AM EST HIV 1/2 ANTIGEN/ANTIBODY, FOURTH GENERATION W/RFL Routine 11/28/2021 8:58 AM EST PAP/HPV Routine 05/30/2021 12:00 AM EDT from Last 3 Months or Most Recently Relevant to Health Maintenance Results * Referral to Podiatry (05/26/2025) us Stanley Name OUTPATIENT REFERRAL ORDERABLES F inal Result * (ABNORMAL) Urinalysis, Complete, with Reflex to Culture (05/04/2025 11:54 AM EDT) Color Urine Yellow [facility] Appearance Urine Clear [facility] PH 6.0 5.0 - 9.0 [facility] Glucose Urine UA Negative Negative mg/dL [facility] Urine Blood Negative Negative [facility] Specific [place] - Urine 1.020 1.005 - 1.025 [facility] Urine Protein Trace Neg-Trace mg/dL [facility] Urine Ketones Negative Negative mg/dL [facility] Nitrite Urine Negative Negative [facility] Leukocyte Esterase Urine Moderate (2+)(A) Negative [facility] RBC Urine 0-2 0 - 2 /HPF [facility] Urine WBC 11-20(A) 0 - 5 /HPF [facility] Urine Squamous Epithelial Cell 6-10 0 - 2 /HPF [facility] Urine Bacteria 2+ None Seen [facility] Hyaline Casts, Urine 0-2 0 - 2 /LPF [facility] 05/04/2025 11:5 4 AM EDT 05/04/2025 12:00 PM EDT Narrative [facility] - 05/04/2025 12:16 PM EDT Urine, Clean Catch us Generic External Data Provider LAB URINE ORDERAB LES Final Result [facility] [address] [place] [phone] * (ABNORMAL) Urinalysis w/reflex microscopic (05/04/2025 11:54 AM EDT) Color Urine Yellow [facility] Appearance Urine Clear [facility] PH 6.0 5.0 - 9.0 [facility] Glucose Urine UA Negative Negative mg/dL [facility] Urine Blood Negative Negative [facility] Specific [place] - Urine 1.020 1.005 - 1.025 [facility] Urine Protein Trace Neg-Trace mg/dL [facility] Urine Ketones Negative Negative mg/dL [facility] Nitrite Urine Negative Negative [facility] Leukocyte Esterase Urine Moderate (2+)(A) Negative [facility] 05/04/2025 11:5 4 AM EDT 05/04/2025 12:00 PM EDT Narrative [facility] - 05/04/2025 12:08 PM EDT Urine, Clean Catch Generic External Data Provider LAB URINE ORDERAB LES Final Result Performing Organization Address [facility]/ZIP Co de Phone Number [facility] [address] [place] [phone] * CDiff Gene PCR (05/04/2025 11:53 AM EDT) [facility] CDiff Gene PCR NEGATIVE Negative [facility] Comment:If C. difficile stro ngly suspected despite one negativetest, a second test may be sent vs. empiric treatment forC. difficile infection. 05/04/2025 11:5 3 AM EDT 05/04/2025 12:00 PM EDT Generic External Data Provider LAB BODY FLUIDS A ND STOOLS ORDERABLES Final Result Performing Organization Address [facility] Co de Phone Number [facility] [address] [place] [phone] * (ABNORMAL) Gastrointestinal panel (05/04/2025 11:53 AM EDT) [facility] Campylobacter Not Detected Not Detect. [facility] Plesiomonas shigelloides Not Detected Not Detect. [facility] Salmonella Not Detected Not Detect. [facility] Vibrio Not Detected Not Detect. [facility] Vibrio cholerae Not Detected Not Detect. [facility] YERSINIA ENTEROCOLITICA Not Detected Not Detect. [facility] Enteroaggregative E. coli (EAEC) Not Detected Not Detect. [facility] Enteropathogenic E. coli (EPEC) Not Detected Not Detect. [facility] Enterotoxigenic E. coli (ETEC) lt/st Not Detected Not Detect. [facility] Shiga-like toxin-producing E. coli (STEC) stx1/stx2 Not Detected Not Detect. [facility] E coli O157 Not applicable Not Detect. [facility] Comment:E. coli containing t he O157 antigen are a subset ofShiga-like toxin- producing E. coli (STEC). Shigella/Enteroinvasive E. coli (EIEC) Not Detected Not Detect. [facility] Cryptosporidium Not Detected Not Detect. [facility] Cyclospora cayetanensis Not Detected Not Detect. [facility] Entamoeba histolytica Not Detected Not Detect. [facility] Giardia lamblia Not Detected Not Detect. [facility] Adenovirus F 40/41 Not Detected Not Detect. [facility] Astrovirus Not Detected Not Detect. [facility] Norovirus GI/GII Detected(A) Not Detect. [facility] Comment:Results of DEETCTED NOROVIRUS called to and read back byFRANCISCO AND MARIAJOSE on 05/04/25 at 1504 by AMAURI. Rotavirus A Not Detected Not Detect. [facility] Sapovirus Not Detected Not Detect. [facility] Comment: All results must be correlated with clinical findings.Negative results do not exclude the possibility ofgastrointestinal infection and should not be used as thesole basis for diagnosis, treatment, or other managementdecisions. Virus, bacteria, and parasite nucleic acid maypersist in vivo independently of organism viability.Additionally, some organisms may be carriedasymptomatically.Detection of organism targets does not imply that thecorresponding organisms are infectious or are the causativeagents for clinical symptoms. There is a risk of falsenegative values due to the presence of sequence variants inthe gene targets of the assay, amplification inhibitors inspecimens, or inadequate numbers of organisms foramplification.The identification of several diarrheagenic E. colipathotypes has historically relied upon phenotypiccharacteristics. This panel targets genetic determinantscharacteristic of most pathogenic strains, but may notdetect all strains having phenotypic characteristics of apathotype.The performance of this test has not been established formonitoring treatment of infection with any of the panelorganisms.This assay is performed by Multiplexed PCR, utilizing [employer]. 05/04/2025 11:5 3 AM EDT 05/04/2025 12:00 PM EDT us Generic External Data Provider LAB MICROBIOLOGY - GENERAL ORDERABLES Final Result [facility] [address] [place] [phone] * CBC auto differential (05/04/2025 10:37 AM EDT) White Blood Count 4.9 4.8 - 10.8 X10*3/uL [facility] Red Blood Count 4.56 4.20 - 5.50 X10*6/uL [facility] Hemoglobin 13.9 12.0 - 16.0 g/dl [facility] Hematocrit 41.0 37.0 - 47.0 % [facility] Mean Corpuscular Volume 89.9 80.0 - 98.0 fL [facility] Mean Corpuscular Hemoglobin 30.5 27.0 - 33.0 pg [facility] Mean Corpuscular HGB Conc 33.9 31.0 - 35.0 g/dl [facility] Red Cell Distribution Width 13.2 11.0 - 16.0 % [facility] Platelet Count 185 160 - 400 X10*3/uL [facility] Mean Platelet Volume 10.2 9.4 - 12.3 fL [facility] Neutrophils Percent Auto 65.8 45 - 73 % [facility] Imm Gran Pct Auto 0.2 0.0 - 0.4 % [facility] Lymphocytes Percent Auto 23.6 20 - 40 % [facility] Monocytes Percent Auto 9.4 2 - 11 % [facility] Eosinophils Percent Auto 0.6 0 - 4 % [facility] Basophils Percent Auto 0.4 0 - 2 % [facility] NRBC Pct Auto 0.0 0.0 - 0.2 /100WBC [facility] Neutrophils Absolute Auto 3.2 2.0 - 8.3 x10*3/uL [facility] Imm Gran Abs Auto 0.01 0.00 - 0.03 X10*3/uL [facility] Lymphocytes Absolute Auto 1.2 1.2 - 4.9 X10*3/uL [facility] Monocytes Absolute Auto 0.5 0.1 - 1.2 X10*3/uL [facility] Eosinophils Absolute Auto 0.0 0.0 - 0.4 X10*3/uL [facility] Basophils Absolute Auto 0.0 0.0 - 0.2 X10*3/uL [facility] NRBC Abs Auto 0.000 0.0 - 0.012 X10*3/uL [facility] 05/04/2025 10:3 7 AM EDT 05/04/2025 10:39 AM EDT us Generic External Data Provider LAB BLOOD ORDERAB LES Final Result Performing Organization Address [facility]/ZIP Co de Phone Number [facility] [address] [place] [address] [phone] * Magnesium (05/04/2025 10:37 AM EDT) Magnesium 1.9 1.6 - 2.6 mg/dL [facility] 05/04/2025 10:3 7 AM EDT 05/04/2025 10:39 AM EDT us Generic External Data Provider LAB BLOOD ORDERAB LES Final Result Performing Organization Address [facility]/ZIP Co de Phone Number [facility] [address] [place] [address] [phone] * Lipase (05/04/2025 10:37 AM EDT) Lipase 24 8 - 78 U/L [facility] 05/04/2025 10:3 7 AM EDT 05/04/2025 10:39 AM EDT us Generic External Data Provider LAB BLOOD ORDERAB LES Final Result Performing Organization Address City/[facility]/ZIP Co de Phone Number [facility] [address] [place] [address] [phone] * (ABNORMAL) Hepatic Function Panel (05/04/2025 10:37 AM EDT) [facility] Bilirubin, Total 0.5 0.0 - 1.0 mg/dL [facility] Bilirubin, Direct 0.2 0.0 - 0.5 mg/dL [facility] Aspartate Amino Transferase 38(H) 5 - 31 U/L [facility] Alanine Aminotransferase 76(H) 0 - 31 U/L [facility] Total Protein 6.8 6.5 - 8.0 g/dL [facility] Albumin Level 4.2 3.5 - 5.0 g/dL [facility] Alkaline Phosphatase 69 39 - 117 U/L [facility] 05/04/2025 10:3 7 AM EDT 05/04/2025 10:39 AM EDT Generic External Data Provider LAB BLOOD ORDERAB LES Final Result [facility] [address] [place] [address] [phone] * Basic Metabolic Panel (05/04/2025 10:37 AM EDT) [facility] Sodium 140 135 - 145 mmol/L [facility] Potassium 3.5 3.3 - 5.1 mmol/L [facility] Chloride 108 96 - 108 mmol/L [facility] Carbon Dioxide 24 22 - 29 mmol/L [facility] Anion Gap 12 12 - 20 [facility] Urea Nitrogen (BUN) 13 9 - 16 mg/dL [facility] Creatinine, Serum 0.67 0.5 - 1.4 mg/dL [facility] Creatinine Clr Calc Pharmacy 98.0 [facility] Comment:Provided height and weight: 157.48 cm,86.6 kg.eGFR (calculated from the MDRD study equation) and eCrCl(calculated from the Cockcroft-Gault equation) are based ondifferent parameters and may not yield comparable results.If eCrCl result is absurd, please check patient'sheight/weight. Estimated Glomerular Filt Rate >60 [facility] Comment:Chronic Kidney Disea se: Estimated GFR < 60 mL/min/1.77g2Zphakn Kidney Disease: Estimated GFR < 15 mL/min/1.73m2 Glucose 107 60 - 115 mg/dL [facility] Calcium 8.4 8.4 - 10.2 mg/dL [facility] 05/04/2025 10:3 7 AM EDT 05/04/2025 10:39 AM EDT Generic External Data Provider LAB BLOOD ORDERAB LES Final Result Performing Organization Address [facility] Co de Phone Number [facility] [address] [place] [phone] * Culture, Urine, Routine (05/04/2025 12:00 AM EDT) Urine Urine specimen obtained by clean catch procedure / Unknown 05/04/2025 05/04/2025 Comment:UACC Narrative [facility] - 05/05/2025 8:49 AM EDT Urine Culture Report Result Urine Culture > 100,000 cfu/ml Urine Culture Mixed bacterial radha characteristic of Urine Culture urogenital contamination. Specimen Source: Urine clean catch Generic External Data Provider LAB MICROBIOLOGY - GENERAL ORDERABLES Final Result Performing Organization Address [facility]/ZIP Co de Phone Number [facility] [address] [place] [phone] * Mammography (07/07/2024) Mammogram BIRADS 1 Normal, Abnormal, BIRADS 1 , BIRADS 2 Comment:repeat in a year Anatomical Region Laterality Modality Other Historical Provider HEALTH MAINTENANCE Final Result * Hemoglobin A1c (03/10/2024 9:03 AM EDT) Hemoglobin A1c 5.6 <6.0 % [facility] Comment:Hemoglobin A1C Refer ence Range Adults: 4.8 - 6.0 % Non diabetic: < 6.0 % Goal: < 7.0 %Additional Action Suggested: > 8.0 %Note: Hemoglobin A1c results are invalid for patients with abnormal amounts of HbF. Blood transfusions may impact the HbA1c concentration in the patient sample. Estimated Average Glucose 114 mg/dL [facility] Comment:eAG = Estimated ave rage glucose which is %A1C expressed asaverage glucose, using the formula of the Q6E-AqgfltyQutohth Glucose study (ADAG), Diabetes Care, Vol.31,#8,2007 Blood Venous blood specimen / Unknown 03/10/2024 9:03 AM EDT 03/10/2024 11:41 AM EDT Result [facility] Stanley Diaz MD LAB BLOOD ORDERABLES Final Resul t Performing Organization Address City/[facility] Co de Phone Number [facility] [address] [place] [phone] * Hm Colonoscopy (02/20/2023 10:42 AM EDT) Colonoscopy Normal Normal Comment:colonoscopy every 10 yrs [facility] External Provider HEALTH MAINTENANCE Final Result * HEPATITIS C AB W/REFL TO HCV RNA, QN, PCR (11/28/2021 8:58 AM EST) HEPATITIS C ANTIBODY NON-REACT TOMMY NON-REACT TOMMY [facility] INDEX 0.01 <1.00 [facility] Comment: HCV antibody was non-reactive. There is no laboratory evidence of HCV infection. In most cases, no further action is required. However, if recent HCV exposure is suspected, a test for HCV RNA (test code 23755) is suggested. For additional information please refer to http://education.Spring.me/faq/XPV65n7 (This link is being provided for informational/ educational purposes only.) 11/28/2021 8:58 AM EST Glenna Lam [employer] HISTORICAL/NON ORDERABLE LABS Final Result Performing Organization Address City/State/[facility] de Phone Number [facility] [address] * HIV 1/2 ANTIGEN/ANTIBODY,FOURTH GENERATION W/RFL (11/28/2021 8:58 AM EST) HIV-1/2 ANTIGEN AND ANTIBODIES, 4TH GENERATION W/ REFLEX NON-REACT TOMMY NON-REACT TOMMY [facility] Comment: HIV-1 antigen and HIV-1/HIV-2 antibodies were not detected. There is no laboratory evidence of HIV infection. PLEASE NOTE: This information has been disclosed to you from records whose confidentiality may be protected by state law. If your state requires such protection, then the state law prohibits you from making any further disclosure of the information without the specific written consent of the person to whom it pertains, or as otherwise permitted by law. A general authorization for the release of medical or other information is NOT sufficient for this purpose. For additional information please refer to http://education.Spring.me/faq/SSH399 (This link is being provided for informational/ educational purposes only.) The performance of this assay has not been clinically validated in patients less than 2 years old. 11/28/2021 8:58 AM EST Glenna Lam MANAGER [employer] LAB BLOOD ORDERABLES Final Res ult Performing Organization Address [facility] de Phone Number [facility] [address] * Hm Pap Smear (05/30/2021 12:00 AM EDT) Historical Provider HEALTH MAINTENANCE Final Result from Last 3 Months or Most Recently Relevant to Health Maintenance Insurance [facility] OPEN ACCESS Care Teams Final Inspector Balance Wheel Relationship Specialty Start Date End Date Name, MD Stanley [address] [place] [address] PCP - General Family Medicine 01/10/16
--- OUTSIDE RECORDS SUMMARY | 2025-06-17 07:50 | XMS_ITS | Encounter Summary ---
Author Organization [employer] Address [address] [place] [address] 7 [place] [address] Care Team Providers Care Plant Clerk Name Role Phone Name, Stanley FIGUEROA Primary Care Provider [phone] Encounter Details Date Type Department Care Team (Late Contact Info) Description 02/16/2023 Abstract [facility] [address] [place] [address] [phone] NameStanley MD [address] [place] [address] [phone] Social History Tobacco Use Types Packs/Day Years [...] Description 08/03/2025 3:30 PM EST Office Visit [facility] [address] [place] [address] [phone] Stanley Diaz MD [address] [place] [address] [phone] documented as of this encounter Procedures Procedure Name Priority Date/Time Associated Diagnosis Comments COLONOSCOPY Routine 12/09/2022 11:46 AM EST MAMMOGRAPHY Routine 06/26/2022 11:49 AM EDT PAP/HPV Routine 05/30/2021 12:00 AM EDT documented in this encounter Results * Colonoscopy (12/09/2022 11:46 AM EST) Colonoscopy Normal Normal Narrative Rosalba Talbert - 12/09/2022 11:46 AM EST Recommended 10 year follow up Historical Provider MD HEALTH MAINTENANCE Final Result * Mammography (06/26/2022 11:49 AM EDT) HM Mammogram Birads-2 Anatomical Region Laterality Modality Other Historical Provider HEALTH MAINTENANCE Final Result * Pap Smear (05/30/2021 12:00 AM EDT) Historical Provider HEALTH MAINTENANCE Final Result documented in this encounter Visit Diagnoses Not on filedocumented in this encounter Care Teams Plant Clerk Relationship Specialty Start Date End Date Name, MD Stanley [address] [place] [address] PCP - General Family Medicine 01/10/16 documented as of this encounter
--- OUTSIDE RECORDS SUMMARY | 2025-06-17 07:50 | XMS_ITS | Clinical Summary ---
Author Organization [facility] Address [address] [place] [address] Phone Care Team Providers Care Service Operator Name Role Phone Name, Stanley FIGUEROA Primary Care Provider [phone] Medications Hospital, Clinic, or Other Facility Administered Medication Ordered Dose Route Frequency Start Date End Date Status lidocaine (PF) (XYLOCAINE-MPF) 1 % injection 0.5 mLIndications:Hallux rigidus of right foot .5 mL inj Once PRN Procedure 05/26/2025 05/26/2025 Ended triamcinolone acetonide (KENALOG-40) 40 mg/mL injection 20 mgIndications:Hallux rigidus of right foot 20 mg IAtc Once PRN Procedure 05/26/2025 05/26/2025 Ended Encounters Date Type Department Care Team Description 05/26/2025 1:15 PM EDT Office Visit Orthopedic Surgery [facility] [address] [facility] [address] [place] [phone] Tree Jerome, DPM Hallux rigidus of right foot (Primary Dx); Bunion of right foot; Bursitis of right foot from Last 3 Months Surgical History Surgery Date Site/Laterality Comments SECTION PROCEDURE: [place] DELIVERY ONLY; COMMENT: times 2 TUBAL LIGATION [...] Care Team (Late st Contact Info) Description 07/27/2025 1:40 PM EDT Appointment Radiology Department [address] [phone] Health Maintenance Due Date Last Done Comments Cervical Cancer Screening: HPV 1991 Colorectal Cancer Screening: Colonoscopy 09/09/2022 Hepatitis C Screening 09/09/2022 Social Influencers of Health Screening 09/09/2022 Hepatitis B Vaccines (3 of 3 - 19+ 3-dose series) 09/09/2024 04/14/2024, 03/10/2024 Depression Screening 10/01/2024 COVID-19 Vaccine ( season) 2025 09/02/2021, 11/26/2020, 10/26/2020 Influenza Vaccine (#1) 2025 , 10/08/2023, 09/02/2021, Additional history exists Breast Cancer Screening 07/07/2026 07/07/20 24, 07/07/2024, 07/02/2023, Additional history exists DTaP,Tdap,and Td Vaccines (5 - Td or Tdap) 02/21/2034 02/22/2024, 11/15/2012, 10/27/2010, Additional history exists HIV Screening Completed 11/28/2021 Zoster Vaccines Completed 03/06/2022, [...] Procedure Name Priority Date/Time Associated Diagnosis Comments INJECTION TENDON OR LIGAMENT Routine 05/26/2025 1:15 PM EDT Hallux rigidus of right foot XR FOOT 3+ VIEWS RIGHT Routine 05/26/2025 1:12 PM EDT Bunion of right foot SCREENING MAMMOGRAPHY BI 2-VIEW BREAST INC CAD Routine 07/07/2024 1:01 PM EDT Encounter for screening mammogram for malignant neoplasm of breast from Last 3 Months or Most Recently Relevant to Health Maintenance Results * Injection tendon or ligament (05/26/2025 1:15 PM EDT) Narrative Tree Jerome DPM - 05/26/2025 1:15 PM EDT Tree Jerome DPM 05/26/2025 5:48 PM Injection tendon or ligament Indications: pain Details: 25 G needle Medications: 0.5 mL lidocaine (PF) 1 %; 20 mg triamcinolone acetonide 40 mg/mL Informed Consent: Site: Foot ligament tendon Tree Jerome DPNel IN CLINIC/BEDSIDE ORDERAB LES Final Result * XR Foot 3+ Views Right (05/26/2025 1:12 PM EDT) Anatomical Region Laterality Modality Lower Extremities, Foot Right Computed Radiography Narrative 05/26/2025 5:47 PM EDT Right foot 3 views No fracture. No radiopaque foreign joint spaces normal Moderate to severe bunion deformity bipartite tibial sesamoid noted Foot position Pes planus with Talus navicular uncovering decreased calcaneal inclination anterior displaced symes line talus navicular joint to calcaneal cuboid joint Tree DAVILAM IMG XR PROCEDURES Final R esult * SCREENING MAMMOGRAPHY BI 2-VIEW BREAST INC [...] Breast cancer risk category Low (<15%) Location: [facility], [address] [place] [address], [place], [address], [phone] Procedure Note Claudia Rivera MD - 08/25/2024 [...] Breast cancer risk category Low (<15%) Location: [facility], [address] [place] [address], [phone], [phone] Stanley Diaz MD IMG XR PROCEDURES Final Result from Last 3 Months or Most Recently Relevant to Health Maintenance Insurance [employer] Care Teams Service Operator Relationship Specialty Start Date End Date Name, MD Stanley [address] [place] [address] PCP - General Internal Medicine 02/03/16
--- NOTE | 2025-06-17 07:52 | ED_ITS ---
HPI - Extremity Problem General Chief complaint: Extremity Injury, Upper Stated complaint: injury R thumb Time Seen by Provider: 06/17/25 07:52 Source: patient Mode of arrival: ambulatory Limitations: no limitations History of Present Illness ED Provider: HPI Narrative: 54-year-old woman was getting ready for work today close the garage door onto her right thumb, presented with bleeding, nail is still intact, reports tetanus up-to-date Related Data Previous Rx's ?Medication ?Instructions ?Recorded ibuprofen 600 mg tablet 600 mg PO Q8H PRN for pain # 90 tabs 11/01/20 diphenhydramine HCl 25 mg capsule 25 mg PO TID PRN itc jose #20 caps 04/11/22 (Benadryl) prednisone 20 mg tablet 40 mg (2 x 20 mg) PO DAILY # 10 tabs 04/11/22 nirmatrelvir 300 mg (150 mg See Rx Instructions PO .CO MPLEX 06/08/22 x2)-ritonavir 100 mg tablet,dose #30 ea pack (Paxlovid) dicyclomine 10 mg capsule 10 mg PO BID 3 days #6 caps 05/04/25 ondansetron HCl 4 mg tablet 4 mg PO Q8H 3 days #9 tabs 05/04/25 Allergies Allergy/AdvReac Type Severity Reaction Status Date / Time No Known Allergies (No Known Allergy Verified 06/17/25 07:24 Allergies*) Review of Systems Constitutional: Constitutional: Reports as per HPI [facility] Past Medical History Medical History Internal derangement of right knee Patellofemoral pain syndrome of left knee Diverticulitis Migraine Osteoarthritis of knees, bilateral Asthma Surgical History History of arthroscopy of left knee Family History Family History Mother No problems noted. Father No problems noted. 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 Physical Exam Vital Signs: Vital Signs: Last Vital Signs Temp 97.5 F 06/17/25 07:19 Pulse 61 06/17/25 07:19 Resp 16 06/17/25 07:19 BP 135/77 06/17/25 07:19 Pulse Ox 98 06/17/25 07:19 O2 Del Method Room Air 06/17/25 07:19 BMI result Body Mass Index 23.3 Const: Other: Examination right hand, there was no injury to the wrist, she is able to spread her fingers squeeze my hand, give me a thumbs up, tendons of the thumb are intact, nail is still intact, there is crush injury to the tip of the thumb it is partial thickness with no active bleeding radial ulnar pulses +2 Medical Decision Making Medical Decision Making MDM Narrative: X-ray did not reveal crush injury to the distal phalanx, does not in need antibiotics, tetanus is up-to-date, discussed with the patient that she may lose the nail at a later time but at right now it is in place, this was not something that was amenable for suturing, there was bleeding controlled, I irrigated and applied Dermabond with nonadhesive dressing, see my discharge instructions Independent Interpretation I performed an independent interpretation of an: Plain X-Ray (No foreign bodies no fracture) Radiology Impression Discussion of test interpretation with radiology: I have reviewed the radiologist's reading. Prescription Management I considered prescription management with: Antibiotic Procedures Laceration Right thumb: Site: hand Side (If applicable): right Size (cm): 0.5 Description: irregular Depth: simple, single layer Pre-repair: irrigated extensively Skin layer closed with: skin adhesive Discharge Plan Discharge Clinical Impression: Crushing injury of right thumb Patient Disposition: Home, Self-Care Additional Instructions: You can follow up with orthopedic surgeons, call the number and asked for hand surgeon, you may or may not lose your nail, keep the dressing in place for the next 48 hours, keep dry, thereafter can remove can wet the area but did not pick at the dry blood mixed with skin glue, you can take Tylenol or ibuprofen as needed for pain, thereafter ice the area X-ray without any fractures you do not need antibiotics and you told me your tetanus is up-to-date Prescriptions: No Action ibuprofen 600 mg tablet 600 mg PO Q8H PRN (Reason: for pain) Qty: 90 0RF prednisone 20 mg tablet 40 mg PO DAILY Qty: 10 0RF diphenhydramine HCl [Benadryl] 25 mg capsule 25 mg PO TID PRN (Reason: itching) Qty: 20 0RF Paxlovid 300 mg (150 mg x 2)-100 mg tablets,dose pack See Rx Instructions .ROUTE .COMPLEX Qty: 30 0RF Rx Instructions: take TWO 150 mg tablets of nirmatrelvir with ONE 100 mg tablet of ritonavir twice daily for 5 days dicyclomine 10 mg capsule 10 mg PO BID 3 Days Qty: 6 0RF ondansetron HCl 4 mg tablet 4 mg PO Q8H 3 Days Qty: 9 0RF Referrals: [facility] [Provider Group] - 1 week Clinical Impression: Crushing injury of right thumb Stand Alone Forms: Work/School Release Print Language: Hungarian
[2025-06-17 08:18] VITALS: BP 117/79; PULSE 57; RESP 18; TEMP 36.7; O2SAT 96
[2025-06-17 09:15] VITALS: BP 117/79; PULSE 57; RESP 18; TEMP 36.7; O2SAT 96
== END 2025-06-17 09:16 | disposition home or self-care (01) ==
PROVIDERS: Emergency Provider Emergency Medicine; PCP Internal Medicine Geriatric Medicine
DX: S67.01XA Crushing injury of right thumb, initial encounter (principal); M79.641 Pain in right hand; Y29.XXXA Contact with blunt object, undetermined intent, initial encounter; Y93.9 Activity, unspecified; Y92.9 Unspecified place or not applicable; Y99.8 Other external cause status; Z79.899 Other long term (current) drug therapy
CPT/HCPCS: 12001; 73140; 99283; 99284

== ENCOUNTER → 2025-06-17 07:39 | Outpatient (BNV) | payer OTHER, SELFPAY | PROVIDERS: Emergency Provider Emergency Medicine; PCP Internal Medicine Geriatric Medicine; Visit Provider Radiology Diagnostic Radiology | DX: M79.644 Pain in right finger(s) (principal) | CPT/HCPCS: 73140 ==

== ENCOUNTER 2025-08-10 09:35 | Outpatient (REF) | payer OTHER, SELFPAY ==
--- OUTSIDE RECORDS SUMMARY | 2025-08-10 10:52 | XMS_ITS | Encounter Summary ---
Author Organization [employer] Address [address] [place] [address] 7t [place] [address] Care Team Providers Care Cnc Router Operator Name Role Phone Name, Stanley FIGUEROA Primary Care Provider [phone] Encounter Details Date Type Department Care Team ([facility] st Contact Info) Description 02/16/2023 Abstract [facility] [address] [place], [place] [phone] Name, MD Stanley [address] [place] [address] Social History Tobacco Use Types Packs/Day Years [...] Results * Colonoscopy (12/09/2022 11:46 AM EST) [facility] Colonoscopy Normal Normal Narrative Rosalba Talbert - [...] on filedocumented in this encounter Care Teams Cnc Router Operator Relationship Specialty Start Date End Date Name, MD Stanley [address] [place] [address] PCP - General Family Medicine 01/10/16 documented as of this encounter
--- OUTSIDE RECORDS SUMMARY | 2025-08-10 10:52 | XMS_ITS | Data Portability ---
Author Organization [facility], [facility] Address [address] [place] [address] Assessment No assessment recorded. Plan of Treatment Reminders Order Date Submit Date Provider Last Modified By Organization Details Last Modified Time Details Appointments None recorde d. Lab None recorde d. Referral None recorde d. Procedures None recorde d. Surgeries None recorde d. Imaging XR, finger( s), 2 or more view - New right thumb, room UC2 025 06/19/20 [facility] Office, [address] [facility] [place], [address], [address], 08:27:11 Medication Orders None recorde d. Patient TargetsNo targets recorded. Patient InstructionsNo instructions recorded. Reason for Referral None Reported. Results Created Date Observation Date Name Description Value Unit Range Abnormal Flag Note LastModifiedBy Organization Detail LastModifiedTime 06/19/2006/19/2025 XR, finge r(s), 2 or more view [email or web address]:/ [email or web address] ?Encry pted=s hAaTro YD8dLq bEUv6g %2BXZw aYqtaq 0bqfl% 2Fg9IQ a4ajBk vP9nXo QUaueC m3YtLR FvZlgJ JJ8mAn HZtai3 1k1697 AC0Klb HuCWae nKiQtr MwF INTERFACE [facility] [address], [place], [address], 06/19/2025 08:27:11 06/19/20 25 06/19/2025 XR, finge r(s), 2 or more view [email or web address] ?Encry pted=s hAaTro YD8dLq bEUv6g %2BXZw aYqtaq 0bqfl% 2Fg9IQ a4ajBk vP9nXo QUaueC m3YtLR FvZl J8Canton HZtai3 2i1730 AC0Klb HuCWae nKiQtr MwF INTERFACE [facility] [address], [place], [address], 06/19/2025 08:27:13 06/19/20 25 06/19/2025 XR, finge r(s), 2 or more view [email or web address]:/ [email or web address] ?Encry pted=s hAaTro YD8dLq bEUv6g %2BXZw aYqtaq 0bqfl% 2Fg9IQ a4ajBk vP9nXo QUaueC m3YtLR FvZl JJ8Canton HZtai3 9j1818 AC0Klb HuCWaa mKiQtr MwF INTERFACE [facility] Office [address], [place], [address], 06/19/2025 08:27:53 06/19/20 25 06/19/2025 XR, finge r(s), 2 or more view http:/ [email or web address] ?Encry pted=s hAaTro YD8dLq bEUv6g %2BXZw aYqtaq 0bqfl% 2Fg9IQ a4ajBk vP9nXo QUaueC m3YtLR FvZl JJ8Canton HZtai3 6p8588 AC0Klb HuCWaa mKiQtr MwF INTERFACE [facility] [address], [place], [address], 06/19/2025 08:27:55 Result Notes Documentation Provider Name and Address Organization Details Recorded Time Xr, Finger(s), 2 Or More View : [email or web address] Encrypted=vdOxRflIL0nFuqF Uv6g%5VXLcqEoljr8nvaj%2Fg 9SVx3tnIzqA9qXtVBvefOp0Jk PSKgXkjGFP0eVzDLzab33o695 3NQ2GlbVkXVdcmNtTueAyV Not Available [facility] 06/19/2025 08:27: 12 Xr, Finger(s), 2 Or More View : [email or web address] Encrypted=xgCkTwaTG2iFioZ Uv6g%9LMPmbVibru1eaao%2Fg 2HVj5ctYctY3fCsZJirqHu9Db QJPtRuwZSL9dFoAVeub07a023 4UH5FnfBbSRtvlLtUulUuH Not Available [facility] 06/19/2025 08:27: 13 Xr, Finger(s), 2 Or More View : [email or web address]? Encrypted=kcNrLxzZI0cVkvO Uv6g%2HSEqeEpehv3zawi%2Fg 3PSt5bjCvqH5qDaWVngtIo7Hs URGoAhfNEZ2nRuTNuvy57w163 5GD4WtoRjPGwpjGdBnfEaZ Not Available [facility] 06/19/2025 08:27: 53 Xr, Finger(s), 2 Or More View : [email or web address] Encrypted=czVfEpfKQ4oJbeG Uv6g%5OQClsEtkap3vxmi%2Fg 5GTn1obJxrI6sXpNBelnMl6Js MPHbOajBSX9kPuGBxnx31e251 6LS8AddJhQGpdiUfOvbFmX Not Available [facility] 06/19/2025 08:27: 55 Problems Name Problem SNOMED Code Status Onset Date Resolution Date Notes Provider Name and Address Organization Details Recorded Time Thumb injury 461170898 Active 025 STEVE michele [place] - [facility] 06/19/2025 08:19:49 Problem Notes None recorded. Medical Equipment None Reported. Allergies No known drug allergies Medications Name Sig Start Date Stop Date Status Note LastModified by Organization Details LastModified Time cyclobenzap rine 10 mg tablet TAKE 1 TABLET (10 MG) BY MOUTH NEEDED IN THE MORNING , AT NOON, AND AT BEDTIME FOR MUSCLE SPASMS active Not Available Not Available No t Available azithromyci n 250 mg tablet TAKE 2 TABLETS BY MOUTH TODAY, THEN TAKE 1 TABLET DAILY FOR 4 DAYS DIRECTED 06/19 completed Not Available Not Available Not Available ondansetron HCl 4 mg tablet 4 MG ORALLY EVERY 8 HOURS FOR 3 DAYS active Not Available Not Available No t Available ibuprofen 600 mg tablet TAKE 1 TABLET BY MOUTH THREE TIMES A DAY active Not Available Not Available No t Available albuterol sulfate HFA 90 mcg/actuati on aerosol inhaler INHALE 2 PUFFS EVERY 6 HOURS IF NEEDED FOR WHEEZING. active Not Available Not Available No t Available dicyclomine 10 mg capsule TAKE 1 CAPSULE ORALLY 2 TIMES A DAY FOR 3 DAYS active Not Available Not Available No t Available loratadine 10 mg tablet TAKE 1 TABLET (10 MG) BY MOUTH ONCE PER DAY. active Not Available Not Available No t Available Vitamin D3 25 mcg (1,000 unit) capsule TAKE 1 CAPSULE (25 MCG) BY MOUTH ONCE PER DAY. active Not Available Not Available No t Available diclofenac 1 % topical gel APPLY TWICE A DAY active Not Available Not Available No t Available Vitals Date Recorded Body height Body mass index (BMI) Body weight Provider Name and Address Organization Details Last Updated DateTime 06/19/2025 157.48 cm 33.3 kg/m2 18056.81 g STEVE CHACON [place] - [facility] 06/19/2025 08:19:11 Social History None recorded. Functional Status None recorded. Mental Status None recorded. Family History Nothing Reported. Medical History No medical history recorded. Gynecological HistoryNo gynecological history recorded. Obstetrics History GPAL:G 0 P 0 0 0 0 Past Encounters Encounter ID Performer Location Encounter Start Date Encounter Closed Date Diagnosis/Indication Diagnosis SNOMED-CT Code Diagnosis ICD10 Code Diagnosis IMO Codes Diagnosis Note [id number] Brii Solis PA-C [facility] [place] [address] [place] [address] 06/19/2025 07:54:28 07/01/2025 09:31:39 Thumb injury 751436059 S69.91XA [id number] Health Concerns Section Related Observation LastModified by Organization Detai ls LastModified Time None Recorded Concern Status LastModified by Organization Details LastModified Time None Recorded Advance Directives Directive None Recorded Payers Insurance Date Sequence Insurance Name Policy Number Policy Patel Covered Member ID Patel Member ID Guarantor Name 07/02/2025 1 SCOTT [id number] Marie Sesay [id number] Marie Sesay Notes Date Note Type Note Provider Name and Address Organization Details Recorded Time 06/19/2025 text/html I am seeing the patient today under the supervision of Dr. Guillen who was available but who did not see the patient.History is taken from the patientHPI: Patient here today pleasant 54-year-old female presents to orthopedic urgent care clinic concerning right thumb pain. Apparently last Sunday it got caught in the garage door. She was seen in the ER and tells me it was glued and they told her she likely will lose her nail. She was supposed to take the dressing off in 48 hours which she tried to do which is now but she tells me she cannot get it off. She therefore presents today to the orthopedic urgent care clinic for such problem.Past family, medical, social history and review of systems has been reviewed, updated and is located in the patient s chart.EXAMINATION: The patient's thumb was soaked in Betadine and water. The dressing eventually loosened and was easily removed. Thumb is healing well. There is no signs infection erythema or apparent drainage. Appears she had a skin flap which was glued down. Nail still is appears to be in good condition. She is able to demonstrate some limited flexion and extension. X-ray 2 views of her left thumb shows no acute bony pathology or process. These x-rays were obtained ordered and interpreted today in the office. DIAGNOSIS: Left thumb woundMEDICAL DECISION MAKING:Thumb wound is redressed. Questions are answered. She will follow-up with her primary care provider.Today's visit involved examining the patient, reviewing the history, reviewing the radiographic studies, counseling the patient regarding treatment options, and the administrative tasks including placing orders, preparing patient information and home handouts and preparing the visit note. This note was generated with [facility] speech recognition lawn mower operator dictation software. Please excuse any errors that may have been overlooked during review of this note. Sometimes, these errors may affect the content or meaning of a given sentence. Please call for corrections. Brii Solis PA-C [address] [place] [address] [facility], [place], [address], [facility] - [facility] 06/19/2025 11:57:38 OBGyn Episode No OBEpisode recorded.
--- OUTSIDE RECORDS SUMMARY | 2025-08-10 10:52 | XMS_ITS | Clinical Summary ---
Author Organization [address] [place] [address] Address [address] [place] [address] Phone Care Team Providers Care Newspaper Deliverer Name Role Phone Name, Stanley FIGUEROA Primary Care Provider [phone] Encounters Date Type Department Care Team Description 07/27/2025 1:04 PM EDT - 07/27/2025 11:59 PM EDT Hospital Encounter Radiology Department [address] [address] Encounter for screening mammogram for breast cancer Discharge Disposition: Home or Self Care 05/26/2025 1:15 PM EDT Office Visit Orthopedic Surgery - [facility] [address] [facility] [address] [place] [address] Tree Jerome, DPM Hallux rigidus of right foot (Primary Dx); Bunion of right foot; Bursitis of right foot from Last 3 Months Surgical History Surgery Date Site/Laterality Comments SECTION PROCEDURE: SD DELIVERY ONLY; COMMENT: times 2 TUBAL LIGATION [...] = 0.6 oz pur e alcohol) Comments No Sex and Gender Information Value Date Recorded Sex Assigned at Not on file Legal Sex Female 8:26 AM EST Gender Identity Not on file Sexual Orientation Not on file Obstetrics History Para Term AB IAB SAB Ectopic Multiple Livin g Live Births 2 2 2 2 Date Outcome GA Total Labor Labor/2nd/3rd Weight Sex Type Anes PTL Laverne A1 A5 Name Clin Term Term Last Filed Vital Signs Vital Sign Reading [...] Care Team (Late st Contact Info) Description 01/25/2026 10:00 AM EDT Office Visit Obstetrics and Gynecology - [address] [address] Glenna [place], [address] [address] Health Maintenance Due Date Last Done Comments Colorectal Cancer Screening: Colonoscopy 1970 Cervical Cancer Screening: HPV 1991 RSV Immunization Adult Patients (1 - Risk 50-74 years 1-dose series) 2020 Hepatitis C Screening 09/09/2022 Social Influencers of Health Screening 09/09/2022 Hepatitis B Vaccines (3 of 3 - 19+ 3-dose series) 09/09/2024 04/14/2024, 03/10/2024 Depression Screening 10/01/2024 COVID-19 Vaccine ( season) 2025 09/02/2021, 11/26/2020, 10/26/2020 Influenza Vaccine (#1) 2025 4, 10/08/2023, 09/02/2021, Additional history exists Breast Cancer Screening 07/27/2027 07/27/20 25, 07/07/2024, 07/07/2024, Additional history exists DTaP,Tdap,and Td Vaccines (5 [...] Procedure Name Priority Date/Time Associated Diagnosis Comments MG MAMMO DIGITAL SCREENING W EFRAIN BILAT Routine 07/27/2025 1:21 PM EDT Encounter for screening mammogram for breast cancer INJECTION TENDON OR LIGAMENT Routine 05/26/2025 1:15 PM EDT Hallux rigidus of right foot XR FOOT 3+ VIEWS RIGHT Routine 05/26/2025 1:12 PM EDT Bunion of right foot from Last 3 Months Results * MG Mammo Digital Screening w Efrain bilat (07/27/2025 1:21 PM EDT) Anatomical Region Laterality Modality Breast Bilateral Mammography 07/29/2025 8:47 AM EDT Impressions 07/29/2025 9:06 AM EDT No mammographic evidence for malignancy. BI-RADS CATEGORY: 1 - NEGATIVE RECOMMENDATION: Screening bilateral mammogram is recommended in 1 year. Mammo Location: [facility], [address] [place] [address], [id number], . -------- FINAL REPORT -------- Dictated By: Claudia Rivera Dictated Date: 07/29/2025 08:47 ET Assigned Physician: Claudia Rivera Reviewed and Electronically Signed By: Claudia Rivera Signed Date: 07/29/2025 09:06 ET Workstation ID: [id number] Transcribed By: Self Edit Transcribed Date: 07/29/2025 08:47 ET Narrative 07/29/2025 9:06 AM EDT Bilateral screening mammogram. CLINICAL: 54 years old, Female, routine annual exam. COMPARISON: Prior studies, latest from 07/07/2024. TECHNIQUE: Bilateral MLO and CC views were obtained digitally with 2-D C views and 3-D mammogram (digital breast tomosynthesis). Computer-aided detection was utilized in evaluation of this exam (CAD). FINDINGS: There is no evidence of suspicious mass or architectural distortion. No worrisome calcifications are evident. There has been no significant change from prior exam(s). BREAST DENSITY: B - There are scattered areas of fibroglandular density. Procedure Note Claudia Rivera MD - 07/29/2025 Bilateral screening mammogram. CLINICAL: 54 years old, Female, routine annual exam. COMPARISON: Prior studies, latest from 07/07/2024. TECHNIQUE: Bilateral MLO and CC views were obtained digitally with 2-D Cviews and 3-D mammogram (digital breast tomosynthesis). Computer-aideddetection was utilized in evaluation of this exam (CAD). FINDINGS: There is no evidence of suspicious mass or architectural distortion. Noworrisome calcifications are evident. There has been no significantchange from prior exam(s). BREAST DENSITY: B - There are scattered areas of fibroglandular density. IMPRESSION: No mammographic evidence for malignancy. BI-RADS CATEGORY: 1 - NEGATIVE RECOMMENDATION: Screening bilateral mammogram is recommended in 1 year. Mammo Location: [facility], [address] [place] [address], [id number], . -------- FINAL REPORT -------- Dictated By: Claudia Rivera Dictated Date: 07/29/2025 08:47 ET Assigned Physician: Claudia Rivera Reviewed and Electronically Signed By: Claudia Rivera Signed Date: 07/29/2025 09:06 ET Workstation ID: [id number] Transcribed By: Self Edit Transcribed Date: 07/29/2025 08:47 ET Stanley GAMING BI PROCEDURES Final Result * Injection tendon or ligament (05/26/2025 1:15 PM EDT) Narrative Tree Jerome DPM - 05/26/2025 1:15 PM EDT Tree Jerome DPM 05/26/2025 5:48 PM Injection tendon or ligament Indications: pain Details: 25 G needle Medications: 0.5 mL lidocaine (PF) 1 %; 20 mg triamcinolone acetonide 40 mg/mL Informed Consent: Site: Foot ligament tendon Tree Jerome DPM IN CLINIC/BEDSIDE ORDERAB LES Final Result * [...] navicular joint to calcaneal cuboid joint Tree Jerome DPM IMG XR PROCEDURES Final R esult from Last 3 Months Insurance [employer] [id number] Care Teams Newspaper Deliverer Relationship Specialty Start Date End Date Name, MD Stanley [address] [place], [place] PCP - General Internal Medicine 02/03/16
--- OUTSIDE RECORDS SUMMARY | 2025-08-10 10:52 | XMS_ITS | Encounter Summary ---
Author Organization [employer] Address [address] [facility] [address] [place] [address] Care Team Providers Care Hall Tender Name Role Phone Name, Stanley FIGUEROA Primary Care Provider [phone] Encounter Details Date Type Department Care Team ([facility] st Contact Info) Description 01/30/2023 Orders Only [facility] [address] [place] [address] Jacqui Fields LPN Social History Tobacco Use [...] on file documented as of this encounter Visit Diagnoses Not on filedocumented in this encounter Care Teams Hall Tender Relationship Specialty Start Date End Date Name, MD Stanley [address] [place] [id number] PCP - General Family Medicine 01/10/16 documented as of this encounter
--- OUTSIDE RECORDS SUMMARY | 2025-08-10 10:52 | XMS_ITS | Clinical Summary ---
Author Organization [employer] Address [address] [facility] [address] [place] [address] Care Team Providers Care Residential Glazier Name Role Phone Name, Stanley FIGUEROA Primary Care Provider [phone] Allergies No known active allergies Medications albuterol 108 (90 Base) MCG/ACT inhaler Inhale 2 puffs every 6 (six) hours if needed for wheezing. 18 g 11 10/08/19 24 Active omeprazole OTC (PriLOSEC OTC) 20 MG EC tablet Take 1 tablet (20 mg) by mouth before breakfast. Do not crush, chew, or split. 30 tablet 2 10/26/19 24 Active Diclofenac Sodium (Voltaren) 1 % gel Use topical BID 100 g 3 06/09/20 24 Active cholecalcifero l (Vitamin D-3) 25 MCG (1000 UT) capsule Take 1 capsule (25 mcg) by mouth Once per day. 90 capsule 3 01/13/20 25 026 Active loratadine (Claritin) 10 MG tablet Take 1 tablet (10 mg) by mouth Once per day. 90 tablet 3 01/13/20 25 026 Active cyclobenzaprin e (Flexeril) 10 MG tablet Take 1 tablet (10 mg) by mouth if needed in the morning, at noon, and at bedtime for muscle spasms. 90 tablet 08/03/20 25 025 Active ibuprofen 600 MG tablet Take 1 tablet (600 mg) by mouth every 8 (eight) hours if needed for mild pain. 90 tablet 08/03/20 25 Active ibuprofen 600 MG tablet TAKE 1 TABLET BY MOUTH 3 TIMES DAILY. 90 tablet 07/07/20 24 11/03/2 025 Discontinued(Re order (will not trigger notification to Pharmacy)) cyclobenzaprin e (Flexeril) 10 MG tablet Take 1 tablet (10 mg) by mouth if needed in the morning, at noon, and at bedtime for muscle spasms. 90 tablet 08/05/20 24 025 Discontinued(Re order (will not trigger notification to Pharmacy)) Active Problems Problem Noted Date Diagnosed Date [...] Encounters Date Type Department Care Team Description 08/03/2025 3:30 PM EST Office Visit [facility] [address] [place] [address] NameStanley MD Prediabetes (Primary Dx); Screening for cholesterol level; Encounter for immunization 08/03/2025 Travel 07/31/2025 Telephone [facility] [address] [place] [address] Stanley Diaz MD Chart Prep 07/30/2025 Telephone [facility] [address] [place], [place] [phone] Stanley Diaz MD MAMMO CARE GAP UPDATE 07/27/2025 Travel 06/18/2025 Telephone [facility] [address] [place], [place] [phone] Jacqui Zaidi, DO Work note 06/18/2025 Travel 06/17/2025 Orders Only [facility] External Provider, [facility] 05/15/2025 Telephone [facility] [address] [place] [address] Dolly Jose [place] july recalls from Last 3 Months Immunizations Immunization Administration Dates Next Due Hep B, adult 04/14/2024,03/10/2024 Influenza injectable quadriv alent IIV4 with preservative 07/04/2018 Influenza injectable quadriv alent preservative free 10/08/2023,09/02/2021,07/03/2019 Influenza, IIV3, injectable 10/27/2010 Influenza, seasonal, injecta ble, preservative free 08/03/2025,08/05/2024 Moderna Covid-19 Vaccine 12+ 11/26/2020,10/26/19 21 Pneumococcal [...] Date Recorded Patient Health Questionnaire-9 Score 0 08/03/2025 Patient Health Questionnaire-9 Score 0 08/03/2025 Last PHQ-9: Questionnaire Data Not on file 1 10/03/2024 Housing Stability Answer Date Recorded What is your housing situation today? I have michael garzon 08/03/[address] you li ve. Do you have problems with any of the following? None of the above 08/03/2025 Food Insecurity Answer Date Recorded Within the past 12 months, y ou worried that your food would run out before you got money to buy more: Never True 08/03/2025 Within the past 12 months,th e food you bought just didn't last and you didn't have enough money to get more: Never True 11/2024 Transportation Answer Date Recorded In the past 12 months, has l ack of transportation kept you from medical appts, meetings, work or from getting things needed for daily living? No 08/03/2025 Utilities Answer Date Recorded In the past 12 months, has t he electric, gas, oil or water company threatened to shut off services in your home? No 08/03/2025 Depression Answer Date Recorded Patient Health Questionnaire-2 Score 0 08/03/2025 Internet Access Answer Date Recorded Internet Access Q1 Yes 08/03/2025 Internet Access Q2 Not on file 08/03/2025 Comments Unknown Sex and Gender Information Value Date Recorded Sex Assigned at Female 07/31/2022 10:26 AM EDT Legal Sex Female 10:26 AM EDT Gender Identity Female 07/31/2022 10:26 AM EDT Sexual Orientation Straight 07/31/2022 10 :26 AM EDT Last Filed Vital Signs Vital Sign Reading Time Taken Comments Blood Pressure 122/74 08/03/2025 3:40 PM EST Pulse 75 08/03/2025 3:40 PM EST Temperature 36.3 C (97.3 F) 08/03/2025 3:40 PM EST Respiratory Rate 18 08/03/2025 3:40 PM EST Oxygen Saturation 98% 08/03/2025 3:40 PM EST Inhaled Oxygen Concentration - - Weight 85.7 kg (189 lb) 08/03/2025 3:40 PM EST Height 157.5 cm (5' 2 ) 08/03/2025 3:40 PM EST Body Mass Index 34.57 08/03/2025 3:40 PM EST Plan of Treatment Health Maintenance Due Date Last Done Comments CT Colonography 1970 FIT DNA/Cologuard 1970 FIT 1970 FOBT 1970 Sigmoidoscopy 1970 Hepatitis B Vaccines (3 of 3 - 19+ 3-dose series) 09/09/2024 04/14/2024, 03/10/2024 COVID-19 Vaccine ( season) 2025 09/02/2021, 11/26/2020, 10/26/2020 Cervical Cancer Screening 05/30/2026 HPV/Cotest 05/30/2026 Pap Smear 05/30/2026 05/30/2021 Disability Screening 07/27/2026 07/27/2025 Mammogram 07/27/2026 07/27/2025, 07/02, 07/07/2024, Additional history exists Alcohol/Substance Use Screening 08/03/2026 08/03/2025 Depression Screening 08/03/2026 08/03/2025, 08/03/20 25 Diabetes: Hemoglobin A1C 08/03/2026 025, 03/10/2024, 03/12/2023, Additional history exists SDOH Screening 08/03/2026 08/03/2025 Tobacco Screening 08/03/2026 08/03/2025 Colonoscopy 12/09/2028 02/20/2023, 12/09/2022 Colorectal Cancer Screening 12/09/2028 DTaP/Tdap/Td Vaccines (4 - Td or Tdap) 02/21/2034 02/22/2024, 11/15/2012, 10/27/2010, Additional history exists RSV Patients and Patients Aged 60 years or older (1 - 1-dose 75+ series) 2045 HIV Screening Completed 11/28/2021 Hepatitis C Screening Completed 11/28/2021 Zoster Vaccines Completed 03/06/2022, 11/28/2021 Pneumococcal Vaccine: 50+ Years Completed 03/10/2024 Influenza Vaccine Completed 08/03/2025, , 10/08/2023, Additional history exists HIB Vaccines Aged Out [...] Procedure Name Priority Date/Time Associated Diagnosis Comments POCT GLYCATED HEMOGLOBIN, TOTAL Routine 08/03/2025 3:42 PM EST Prediabetes POCT GLUCOSE Routine 08/03/2025 3:42 PM EST Prediabetes XR FINGERS 2+ VIEWS RIGHT Routine 06/17/2025 7:39 AM EDT AMB REFERRAL TO PODIATRY Routine 05/26/2025 Bunion of great toe of right foot Foot pain, right HM MAMMOGRAPHY Routine 07/07/2024 HM COLONOSCOPY Routine 02/20/2023 10:42 AM EDT ZZZ HISTORICAL HEPATITIS C AB W/REFL TO HCV RNA, QN, PCR Routine 11/28/2021 8:58 AM EST HIV 1/2 ANTIGEN/ANTIBODY, FOURTH GENERATION W/RFL Routine 11/28/2021 8:58 AM EST PAP/HPV Routine 05/30/2021 12:00 AM EDT from Last 3 Months or Most Recently Relevant to Health Maintenance Results * (ABNORMAL) POCT Hgb A1c (08/03/2025 3:42 PM EST) Hemoglobin A1C 5.7 4.0 - 5.7 % QC Media Lot # [id number] Lot# Expiration Date 51 Blood 08/03/2025 3:42 PM EST us Stanley Diaz MD POINT OF CARE TEST ENTER/EDIT OR DERABLES Final Result * (ABNORMAL) POCT Glucose (08/03/2025 3:42 PM EST) Glucose Blood, POC 205(A) 60 - 200 mg/dL QC Media Lot # [id number] Lot# Expiration Date 31,126 Blood Capillary blood specimen / Unknown 08/03/2025 3:42 PM EST us Stanley Diaz MD POINT OF CARE TEST ENTER/EDIT OR DERABLES Final Result * XR Fingers 2+ Views Right (06/17/2025 7:39 AM EDT) Anatomical Region Laterality Modality Upper Extremities, Fingers Right [employer] [facility] 06/17/2025 7:39 AM EDT Narrative 06/17/2025 8:03 AM EDT [address] [address] XRay Report Signed Patient: Marie Cadena MR#: [id number] : 1970 Acct:[id number] Age/Sex: 54 / F ADM Date: 06/17/25 Loc: HO.ED Attending Dr: Ordering Physician: Marco Garcia DO Date of Service: 06/17/25 Procedure(s): XR finger RT min 2V Accession Number(s): [id number] cc: Stanley Diaz MD; Marco Garcia DO Reason for Exam: pain EXAMINATION: XR FINGERS RIGHT HISTORY: pain COMPARISON: There are no prior studies available for comparison. FINDINGS: Three views of the right thumb are submitted. Osseous mineralization is normal. There is no fracture or dislocation. The joint spaces are preserved. The soft tissues are unremarkable. XR/XR finger RT min 2V IMPRESSION: Unremarkable examination of the right thumb. Electronically signed by: Alonzo Stauffer MD 06/17/2025 07:59 AM EDT Dictated By: Alonzo Stauffer MD Signed By: <Electronically signed by Alonzo Stauffer MD in OV> 06/17/25 0759 DD/ 0739 TD/TT: 06/17/25 0741 Mechanical Reliability Engineer: Procedure Note Donotuseinterpreter, Image - 06/17/[address] [address] XRay Report Signed Patient: Marie Cadena LMR#: [id number] : 1970Acct:[id number] Age/Sex: 54 / FADM Date: 06/17/25 Loc: HO.ED Attending Dr: Ordering Physician: Marco Garcia DO Date of Service: 06/17/25 Procedure(s): XR finger RT min 2V Accession Number(s): [id number] cc: Name,Stanley FIGUEROA; Marco Garcia DO Reason for Exam: pain EXAMINATION: XR FINGERS RIGHT HISTORY: pain COMPARISON: There are no prior studies available for comparison. FINDINGS: Three views of the right thumb are submitted. Osseous mineralization is normal. There is no fracture or dislocation. The joint spaces are preserved. The soft tissues are unremarkable. XR/XR finger RT min 2V IMPRESSION: Unremarkable examination of the right thumb. Electronically signed by: Alonzo Stauffer MD 06/17/2025 07:59 AM EDT RP Dictated By: Alonzo Stauffer MD Signed By: <Electronically signed by Alonzo Stauffer MD in OV> 06/17/25 0759 DD/ 0739 TD/TT: 06/17/25 0741 Mechanical Reliability Engineer: [facility] External Provider IMG XR PROCEDURES Edited Result - Final * Referral to Podiatry (05/26/2025) Stanley Diaz MD OUTPATIENT REFERRAL ORDERABLES F inal Result * Hm Colonoscopy (02/20/2023 10:42 AM EDT) Colonoscopy Normal Normal Comment:colonoscopy every 10 yrs [facility] External Provider HEALTH MAINTENANCE Final Result * HEPATITIS C AB W/REFL TO HCV RNA, QN, PCR (11/28/2021 8:58 AM EST) HEPATITIS C ANTIBODY NON-REACT TOMMY NON-REACT TOMMY [facility] INDEX 0.01 <1.00 [facility] Comment: HCV antibody was non-reactive. There is no laboratory evidence of HCV infection. In most cases, no further action is required. However, if recent HCV exposure is suspected, a test for HCV RNA (test code 72255) is suggested. For additional information please refer to http://education.[employer]MedEncentive/faq/JHH55c7 (This link is being provided for informational/ educational purposes only.) 11/28/2021 8:58 AM EST Glenna GREER HISTORICAL/NON ORDERABLE LABS Final Result Performing Organization Address [facility] Phone Number [facility] [address] * HIV 1/2 ANTIGEN/ANTIBODY,FOURTH GENERATION W/RFL (11/28/2021 8:58 AM EST) HIV-1/2 ANTIGEN AND ANTIBODIES, 4TH GENERATION W/ REFLEX NON-REACT TOMMY NON-REACT TOMMY [facility] Comment: HIV-1 antigen and HIV-1/HIV-2 [...] purpose. For additional information please refer to http://education.[employer]Med[employer]/faq/TPA125 (This link is being provided for informational/ educational purposes only.) The performance of this assay has not been clinically validated in patients less than 2 years old. 11/28/2021 8:58 AM EST Glenna GREER LAB BLOOD ORDERABLES Final Res ult Performing Organization Address [facility] Co de Phone Number [facility] [address] [place] [address], * Hm Pap Smear (05/30/2021 12:00 AM EDT) Historical Provider MD HEALTH MAINTENANCE Final Result from Last 3 Months or Most Recently Relevant to Health Maintenance Insurance [address] [address] OPEN ACCESS Care Teams Residential Glazier Relationship Specialty Start Date End Date Name, MD Stanley [address] [place] [id number] PCP - General Family Medicine 01/10/16
[2025-08-10 12:26] LABS: Alanine Aminotransferase 21 U/L (0-31); Albumin Level 4.1 g/dL (3.5-5.0); Alkaline Phosphatase 54 U/L (39-117); Anion Gap 9 (12-20); Aspartate Amino Transferase 22 U/L (5-31); Blood Urea Nitrogen 12 mg/dL (9-16); Calcium 8.9 mg/dL (8.4-10.2); Carbon Dioxide 23 mmol/L (22-29); Chloride 113 mmol/L (96-108); Cholesterol 180 mg/dL (<200); Estimated Glomerular Filt Rate > 60; HDL Cholesterol 43 mg/dL (>40); Potassium 4.0 mmol/L (3.3-5.1); Sodium 141 mmol/L (135-145); Total Protein 6.5 g/dL (6.5-8.0); Triglycerides 74 mg/dL (<150)
== END 2025-08-10 09:36 | disposition home or self-care (01) ==
LOC: HO.HHCL 09:35
PROVIDERS: PCP Internal Medicine Geriatric Medicine; Visit Provider Internal Medicine Geriatric Medicine
DX: Z13.220 Encounter for screening for lipoid disorders (principal); Z13.6 Encounter for screening for cardiovascular disorders; R73.03 Prediabetes
CPT/HCPCS: 36415; 80053; 80061